=== PATIENT | male | born 1995 | race African-American/Black ===

== ENCOUNTER 2019-09-21 04:59 | Emergency (ER) | payer SELFPAY ==
[2019-09-21 05:19] VITALS: BP 123/87; PULSE 80; RESP 18; TEMP 36.6; O2SAT 98
--- NOTE | 2019-09-21 05:22 | ED_ITS ---
HPI - Back Pain/Injury General Chief Complaint: Back Pain/Injury Stated Complaint: LOWER BACK PAIN Time Seen by Provider: 09/21/19 05:22 Source: patient and old records reviewed Mode of arrival: Ambulatory Limitations: no limitations History of Present Illness HPI Narrative: This is a 24-year-old male who comes to the emergency department complaint of low back pain that started in the last 12 hours. Patient states it started about 6:00 pm. Patient states he was driving his car he started to notice some discomfort in his low back particularly on the left side but on both. Patient states that he noticed particularly when he was using gas or break but then when he started to get out of the car using quite painful. He states standing is the most comfortable position he confided. Movement, bending, sitting or twisting are very uncomfortable. Patient denies any fevers. He denies any numbness or weakness down his extremities, no tingling. He denies any saddle anesthesia. No loss of bowel or bladder control. Patient denies any known trauma. 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 Patient tried Advil 1 time but no additional medications. He denies any other medical history, no prior surgeries. He denies any drug allergies. Denies tobacco, alcohol or illicit. Related Data Previous Rx's Medication Instructions Recorded cyclobenzaprine 20 mg PO Q8H PRN #14 tab 09/21/19 Allergies Allergy/AdvReac Type Severity Reaction Status Date / Time No Known Drug Allergies Allergy Unknown Unverified 01/22/18 12:30 SHRIMP Allergy Unknown Uncoded 01/22/18 12:30 Review of Systems Review of Systems ROS Unobtainable: All systems reviewed & are unremarkable except as noted in HPI and below Patient History Social History (Updated 09/21/19 @ 05:45 by Sera Zaman DO) Smoking Status: Never smoker alcohol intake: never substance use type: does not use Smoking Status: Never smoker Substance Use Type: does not use Exam Narrative Exam Narrative: GENERAL: Alert and oriented x three, well-nourished, well- appearing male in mild distress. HEENT: Head normocephalic, atraumatic, EOMI, pupils reactive, face symmetric, moist mucous membranes NECK: Supple, full range of motion CARDIOVASCULAR: Regular rate and rhythm without murmurs, rubs or gallops. RESPIRATORY: Breath sounds equal bilaterally, no wheezes rales or rhonchi. ABDOMEN: Soft, nontender. Normoactive bowel sounds all 4 quadrants. No guarding or rebound, rigidity, no mass : No CVA tenderness BACK: No cervical, thoracic or lumbar vertebral point tenderness. Patient has decreased range of motion. Patient prefers to stand, he does sit but does so gingerly. Patient's gait is normal. Rectal exam is deferred. Muscle strength is 5/5 in lower extremities, DTRs are 2/4 and lower extremities. Dorsalis pedis and tibialis pulses are 2+ and lower extremities. Sensation is intact in the lo wer extremities. EXTREMITIES: Normal range of motion, no clubbing or edema. Neurovascularly intact NEUROLOGICAL: Cranial nerves II through XII grossly intact. Moving all extremities SKIN: Warm, dry, no petechiae, no rashes or lesions. Initial Vital Signs Initial Vital Signs: Vital Signs Temperature 97.9 F 09/21/19 05:19 Pulse Rate 80 09/21/19 05:19 Respiratory Rate 18 09/21/19 05:19 Blood Pressure 123/87 09/21/19 05:19 Pulse Oximetry 98 09/21/19 05:19 Course Orders Ordered: Discontinued Medications Cyclobenzaprine HCl (Flexeril 10 Mg Prepack) 1 bottle [facility] ONE Stop: 09/21/19 05:38 Last Admin: 09/21/19 05:51 Dose: 1 bottle Documented by: YUNIOR Ketorolac Tromethamine (Toradol) 30 mg IM NOW ONE Stop: 09/21/19 05:38 Last Admin: 09/21/19 05:51 Dose: 30 mg Documented by: YUNIOR Vital Signs Vital signs: Vital Signs - 8 hr 09/21/19 05:19 Temperature 97.9 F Pulse Rate 80 Respiratory Rate 18 Blood Pressure 123/87 Pulse Oximetry 98 MDM - Back Pain/Injury MDM Narrative Medical decision making narrative: Discussed with patient he does not have any red flag symptoms at this time, do not feel he warrants imaging. Patient and I discussed reasons to return emergently, plan for a short course of muscle relaxants, NSAIDs and Tylenol. 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 Patient aware of red flag symptoms. Discharge Plan Departure Patient Disposition: Home Clinical Impression: Low back pain Instructions: DI for Low Back Pain Activity Restrictions/Additional Instructions: Follow up in the next week if no improvement of symptoms. You may call [phone] to established with a primary care physician. This is the health human resource assistant number and they can help you find a primary care doctor. Continue ibuprofen up to 800 mg every 8 hours as needed for pain, you may also take Tylenol up to a 1000 mg every 8 hours as needed pain. Take muscle relaxer 1 tablet every 8 hours as needed, this medication can make you sleepy do not drive, perform hazardous activities or make any major decisions while taking this medication. Use moist heat to the affected area, hot showers, hot baths or heat packs. Make sure that when you are at work, lifting and bending that you are protecting your back and using your legs to lift/movement patients. Return to the emergency department for fevers greater 100.4 F, rapidly worsening pain, new numbness or weakness down your lower extremities, loss of bowel or bladder control, numbness in the groin area or other new or concerning symptoms. Prescriptions: New cyclobenzaprine 10 mg tablet 20 mg PO Q8H PRN (Reason: muscle spasm) Qty: 14 RF: 0 Referrals: Cleveland Dotson MD [Primary Care Provider] - Stand Alone Forms: Work Release Note
[2019-09-21] MEDS: CYCLOBENZAPRINE 10 MG PREPACK 1 BOTTLE MISC (05:51)
[2019-09-21] MEDS: KETOROLAC 60 MG/2 ML VIAL 30 MG IM (05:51)
[2019-09-21 06:15] VITALS: BP 120/77; PULSE 76; RESP 18; O2SAT 98
== END 2019-09-21 06:15 | disposition home or self-care (01) ==
PROVIDERS: Emergency Provider Emergency Medicine; PCP Internal Medicine
DX: M54.5 Low back pain (principal)
CPT/HCPCS: 96372; 99282; 99283; J1885

== ENCOUNTER → 2020-10-25 15:42 | Outpatient (CLI) | payer OTHER, SELFPAY ==
[2020-10-25 16:40] LABS: Add Manual Diff / Slide Review NO; Basophils Absolute Auto 100 /uL (0-100); Basophils Percent Auto 0.7 % (0-2); Eosinophils Absolute Auto 200 /uL (0-450); Eosinophils Percent Auto 2.6 % (2-4); Hematocrit 41.4 % (41-53); Hemoglobin 13.9 g/dL (13.5-17.5); Lymphocytes Absolute Auto 2200 /uL (1100-4500); Lymphocytes Percent Auto 23.9 % (25-40); Mean Corpuscular HGB Conc 33.5 % (30-36); Mean Corpuscular Hemoglobin 28.5 PG (26-34); Monocytes Absolute Auto 1400 /uL (0-900); Neutrophils Absolute Auto 5300 /uL (1500-7000); Neutrophils Percent Auto 57.8 % (50-75); Platelet Count 181 X10^3/uL (150-400); Red Blood Cell Count 4.87 X10^6/uL (4.5-5.9); Red Cell Distribution Width 13.4 % (11.6-14.8); White Blood Cell Count 9.2 X10^3/uL (4.5-11.0)
[2020-10-25 17:32] LABS: Erythrocyte Sedimentation Rate 5 MM/HR (0-15)
[2020-10-25 17:35] LABS: Alanine Aminotransferase 22 IU/L (<50); Albumin 4.6 g/dL (3.5-5.0); Albumin Globulin Ratio 1.3 (1.0-2.8); Alkaline Phosphatase 57 U/L (38-126); Aspartate Aminotransferase 27 IU/L (17-59); BUN Creatinine Ratio 15.4 (6-22); Bilirubin Total 0.5 mg/dL (0.2-1.3); Blood Urea Nitrogen 22 mg/dL (9-20); Calcium 9.4 mg/dL (8.4-10.2); Carbon Dioxide 28 mmol/L (22-32); Chloride 103 mmol/L (98-107); Estimated Glomerular Filt Rate 59.3 mL/min (>60); Globulin 3.6 g/dL (1.7-4.1); Glucose 86 mg/dL (70-100); HEMOLYSIS < 15 (0-50); Potassium 3.8 mmol/L (3.4-5.1); Sodium 137 mmol/L (137-145); Total Protein 8.2 g/dL (6.3-8.2)
[2020-10-25 17:36] LABS: C-Reactive Protein Quant < 0.5 mg/dL (<1.0)
[2020-10-25 17:46] LABS: Vitamin D 25 Hydroxy (D3) 32.9 ng/mL (30.0-100.0)
[2020-10-25 18:11] LABS: HIV 1 & 2 Ab/Ag 4th Gen Combo NEGATIVE (NEGATIVE)
[2020-10-26 20:36] LABS: Hepatitis B Surf AB Quant 373.1 mIU/mL (Immunity>9.9)
[2020-10-27 01:34] LABS: Hepatitis B Core AB w/Reflex Negative (Negative)
[2020-10-27 15:16] LABS: QuantiFERON Mitogen Value >10.00 IU/mL (.); QuantiFERON Nil Value 0.48 IU/mL (.); QuantiFERON TB Gold Plus Negative (Negative); QuantiFERON TB1 Ag Value 0.51 IU/mL (.); QuantiFERON TB2 Ag Value 0.49 IU/mL (.)
== END ==
PROVIDERS: PCP Family Medicine; Referring Provider Internal Medicine Rheumatology; Visit Provider Internal Medicine Rheumatology
DX: H20.829 Vogt-Koyanagi syndrome, unspecified eye (principal)
CPT/HCPCS: 36415; 80053; 82306; 85025; 85651; 86140; 86480; 86704; 86706; 87389

== ENCOUNTER 2020-10-26 12:45 | Outpatient (RCR) | payer OTHER, SELFPAY ==
--- NOTE | 2020-07-18 15:21 | PT.OIE ---
Current Diagnoses Sciatica, unspecified side (07/18/20) Past Medical History (Last Updated 07/12/20 @ 21:50 by Carmita Odonnell) Hearing loss (Acute) Pelvic somatic dysfunction (Acute) Sacral region somatic dysfunction (Acute) Somatic dysfunction of lower extremity (Acute) Vision disorder (Chronic) Past Surgical History (Last Updated 07/12/20 @ 21:50 by Carmita Odonnell) Cochlear implant in place (Acute ~11/2015) Visit Care Team Role Provider Type Danieliot Kamara DO Primary Care Provider Physician Specialty: Family Practice Address: [address] [place] [address], [id number] Email: MARANDA Nathan Attending Provider Advanced Material Handler Loader Referring Provider Specialty: Address: [address] [place] [address], [id number] Email: Physical Therapy Initial Evaluation PT-OP-A Visit Information Start: 07/18/20 07:41 Freq: Status: Active Protocol: Document 07/18/20 14:30 AMB (Rec: 07/19/20 14:56 AMB [email or web address]) Out-Patient Physical Therapy Visit Information Visit Information Visit Type Initial Evaluation Visit Start Time 14:30 Visit Stop Time 15:15 Total Visit Minutes 45 Visit Number 1 PT-OP-B Current Condition Start: 07/18/20 07:41 Freq: Status: Active Protocol: Document 07/18/20 14:27 AMB (Rec: 07/18/20 14:42 AMB [id number]) Current Condition History of Current Condition Onset Date November 2019 Current Complaints back pain with L LE radiation History of Current Condition Bryan notes the first onset of back pain was in November getting out of the car. It got better, but not all the way. In April he got pain in his left buttocks, and about 3 weeks ago it progressed to tingling all the way to his calf down the posteriolateral aspect. Sitting worsens the pain, lifting the leg straight out also worsens the pain. 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 Pain is the worst in buttocks, pain can down leg on bad days, not sure what makes a day bad. Walking helps. He does lift weights and in general feels good when working out but avoids lifting and squats . Treatment Goals Patient/Caregiver Goals Decrease pain, be able to sit/ drive without pain. Prior Functional Status Baseline Function- ADL's Independent Baseline Function- Mobility Independent Current Functional Impairments (Reported) Functional Limitations- ADL's sitting and driving immediately cause pain/ tingling Personal Factors Other Personal Factors That May Effect vision/hearing impaired Therapy/Recovery PT-OP-C Subjective Start: 07/18/20 07:41 Freq: Status: Active Protocol: Document 07/18/20 14:30 AMB (Rec: 07/19/20 14:56 AMB [email or web address]) Patient Questionnaires Oswestry Low Back Index Oswestry Score 32 Oswestry Impairment 20 to 39% Impaired (Score 20- 39) OP-PT Pain Assessment Location Left Leg Pain Location Details buttocks going down into the posterior leg Intensity 5 Scale Used Numeric (0 - 10) Description Sharp,Tingling Pain Aggravating Factors Sitting PT-OP-F Manual Assessment Start: 07/18/20 07:41 Freq: Status: Active Protocol: Document 07/18/20 14:30 AMB (Rec: 07/19/20 14:56 AMB [email or web address]) Manual Assessments Soft Tissue Assessment Soft Tissue Mobility Assessment Significant tightness at hamstrings, less so through gluteals, mild tenderness over piriformis, increased tone at lumbar paraspinals bilaterally Other Manual Assessments Other Manual Assessments long axis distraction relieves sx PT-OP-G Mobility & Gait Start: 07/18/20 07:41 Freq: Status: Active Protocol: Document 07/18/20 14:30 AMB (Rec: 07/19/20 14:56 AMB [email or web address]) OP Gait Assessment Gait Gait Assistance Required: Independent PT-OP-J Posture/Palpation/Skin Start: 07/18/20 07:41 Freq: Status: Active Protocol: Document 07/18/20 14:30 AMB (Rec: 07/19/20 14:56 AMB [email or web address]) Posture Evaluation Comments Posture Comments Increased lumbar lordosis PT-OP-K Range of Motion Start: 07/18/20 07:41 Freq: Status: Active Protocol: Document 07/18/20 14:30 AMB (Rec: 07/19/20 14:56 AMB [email or web address]) Lumbar Spine Range of Motion Lumbar Spine Active Degrees Testing Position Standing Flexion 10 Extension 20 Lateral Flexion Left 10 Lateral Flexion Right 20 Comments flexion and L SB painful, extension and R SB not painful Hip Goniometric Range of Motion Hip ROM Limitations Hip ROM Limitations Soft Tissue Tightness,Pain Comments SLR: 55 degrees on L, 70 on R PT-OP-L Special Tests Start: 07/18/20 07:41 Freq: Status: Active Protocol: Document 07/18/20 14:30 AMB (Rec: 07/19/20 14:56 AMB [email or web address]) Special Tests Lumbar Spine Special Tests Straight Leg Raise Test Results + Slump Test Results + PT-OP-M Strength Start: 07/18/20 07:41 Freq: Status: Active Protocol: Document 07/18/20 14:30 AMB (Rec: 07/19/20 14:56 AMB [email or web address]) Hip Strength Hip Manual Muscle Testing Left Flexion (L2) 3 Fair Extension (S1) 4 Good Abduction 4 Good Adduction 4 Good Right Flexion (L2) 4+ Good+ Extension (S1) 5 Normal Abduction 5 Normal Adduction 5 Normal PT-OP-Q Treatments Start: 07/18/20 07:41 Freq: Status: Active Protocol: Document 07/18/20 14:30 AMB (Rec: 07/19/20 14:56 AMB [email or web address]) Therapeutic Exercises Supine Exercises 2 Supine Exercise Name sciatic nerve glide Reps/Minutes 10 Comments small ROM to avoid flaring pain 1 Supine Exercise Name knee to opposite shoulder Reps/Minutes 30x2 PT-OP-T Assessment and Plan Start: 07/18/20 07:41 Freq: Status: Active Protocol: Document 07/18/20 13:30 AMB (Rec: 07/19/20 15:21 AMB [email or web address]) Physical Therapy Assessment Rehab Potential Rehabilitation Potential Good Evaluation Complexity Number of Personal Factors/Comorbidities 1-2 Number of Body Systems Impaired 3 Clinical Presentation at Evaluation Evolving Impairments Impairments Functional Activities,Pain, Posture,ROM Goals Three Impairment exercise Short Term Goal (STG) Bryan will be independent with a gym exercise program that does not exacerbate his symptoms. STG Duration 4 weeks Two Impairment pain Short Term Goal (STG) Bryan will sit for 5 minutes without an increase in his pain. 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 LTG Duration 8 weeks One Impairment ROM Short Term Goal (STG) Bryan will improve his lumbar flexion AROM to 30 degrees without tingling down his leg. STG Duration 4 weeks [facility] Goal (LTG) Bryan will increase his straight leg raise AROM to 70 degrees without leg or back sx . LTG Duration 8 weeks Assessment Summary Assessment Bryan attends physical therapy with recent onset exacerbation of radiating left leg pain. He is very limited in spinal flexion and straight leg raise. Slump and straight leg both increased tingling in his leg, although spinal PAs and palpation over piriformis did not. Distraction reduced sx. Bryan is fairly active, lifting weights 4-5x/week, and will benefit from instruction in safe exercise as well as reducing his nerve sx so that he can sit and drive with less pain. Physical Therapy Plan Frequency and Duration Frequency of Treatment 2x/Week Duration of Treatment 8 weeks Plan of Care Start Date 07/18/20 Plan of Care End Date 09/12/20 Therapeutic Interventions Therapeutic Interventions Home Exercise Program,Joint Mobilizations,Manual Therapy, Neuromuscular Re-education, Therapeutic Activities, Therapeutic Exercises Modalities Traction- Mechanical Next Visit Focus/Plan Next Note Type Treatment Note Next Visit Plan Focus on nerve mobility, improve range, and decreasing tingling sx with sitting
--- NOTE | 2020-07-18 15:23 | PT.OPPOC ---
Physical, Occupational & Speech Therapy At [facility] Current Diagnoses Sciatica, unspecified side (07/18/20) Visit Care Team Role Provider Type Danielito Kamara DO Primary Care Provider Physician Specialty: Family Practice Address: [address] [place] [address], [id number] Email: MARANDA Nathan Attending Provider Advanced Wealth Management Director Referring Provider Specialty: EM Address: [address] [place] [address], [id number] Email: Plan Of Care PT-OP-T Assessment and Plan Start: 07/18/20 07:41 Freq: Status: Active Protocol: Document 07/18/20 13:30 AMB (Rec: 07/19/20 15:21 AMB [email or web address]) Physical Therapy Assessment Rehab Potential Rehabilitation Potential Good Evaluation Complexity Number of Personal Factors/Comorbidities 1-2 Number of Body Systems Impaired 3 Clinical Presentation at Evaluation Evolving Impairments Impairments Functional Activities,Pain, Posture,ROM Goals Three Impairment exercise Short Term Goal (STG) Bryan will be independent with a gym exercise program that does not exacerbate his symptoms. STG Duration 4 weeks Two Impairment pain Short Term Goal (STG) Bryan will sit for 5 minutes without an increase in his pain. STG Duration 4 weeks Shelter Goal (LTG) Bryan will drive from his home to work without an increase in pain. LTG Duration 8 weeks One Impairment ROM Short Term Goal (STG) Bryan will improve his lumbar flexion AROM to 30 degrees without tingling down his leg. STG Duration 4 weeks Shelter Goal (LTG) Bryan will increase his straight leg raise AROM to 70 degrees without leg or back sx . LTG Duration 8 weeks Assessment Summary Assessment Bryan attends physical therapy with recent onset exacerbation of radiating left leg pain. He is very limited in spinal flexion and straight leg raise. Slump and straight leg both increased tingling in his leg, although spinal PAs and palpation over piriformis did not. Distraction reduced sx. Bryan is fairly active, lifting weights 4-5x/week, and will benefit from instruction in safe exercise as well as reducing his nerve sx so that he can sit and drive with less pain. Physical Therapy Plan Frequency and Duration Frequency of Treatment 2x/Week Duration of Treatment 8 weeks Plan of Care Start Date 07/18/20 Plan of Care End Date 09/12/20 Therapeutic Interventions Therapeutic Interventions Home Exercise Program,Joint Mobilizations,Manual Therapy, Neuromuscular Re-education, Therapeutic Activities, Therapeutic Exercises Modalities Traction- Mechanical Next Visit Focus/Plan Next Note Type Treatment Note Next Visit Plan Focus on nerve mobility, improve range, and decreasing tingling sx with sitting Plan of Care Dates Plan of Care Start Date 07/18/20 Plan of Care End Date 09/12/20 Electronically Signed by: Megan Red, PT 07/19/20 [id number] Please Sign and Return: I have reviewed this Plan of Care and certify that the skilled therapy services above are required to meet the patient?s needs. Physician Signature Date Printed Name and Credentials Clinical Instructor Signature Printed Name and Credentials
--- NOTE | 2020-07-21 15:37 | PT.OTN ---
Current Diagnoses Sciatica, unspecified side (07/21/20) Physical Therapy Treatment Note PT-OP-A Visit Information Start: 07/18/20 07:41 Freq: Status: Active Protocol: Document 07/21/20 14:15 AMB (Rec: 07/21/20 15:36 AMB [email or web address]) Out-Patient Physical Therapy Visit Information Visit Information Visit Type Treatment Note Visit Start Time 14:15 Visit Stop Time 15:00 Total Visit Minutes 45 Visit Number 2 PT-OP-B Current Condition Start: 07/18/20 07:41 Freq: Status: Active Protocol: Document 07/18/20 14:27 AMB (Rec: 07/18/20 14:42 AMB [id number]) Current Condition History of Current Condition Onset Date November 2019 Current Complaints back pain with L LE radiation History of Current Condition Chamar notes the first onset of back pain was in November getting out of the car. It got better, but not all the way. In April he got pain in his left buttocks, and about 3 weeks ago it progressed to tingling all the way to his calf down the posteriolateral aspect. Sitting worsens the pain, lifting the leg straight out also worsens the pain. 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 Pain is the worst in buttocks, pain can down leg on bad days, not sure what makes a day bad. Walking helps. He does lift weights and in general feels good when working out but avoids lifting and squats . Treatment Goals Patient/Caregiver Goals Decrease pain, be able to sit/ drive without pain. Prior Functional Status Baseline Function- ADL's Independent Baseline Function- Mobility Independent Current Functional Impairments (Reported) Functional Limitations- ADL's sitting and driving immediately cause pain/ tingling Personal Factors Other Personal Factors That May Effect vision/hearing impaired Therapy/Recovery PT-OP-C Subjective Start: 07/18/20 07:41 Freq: Status: Active Protocol: Document 07/21/20 14:15 AMB (Rec: 07/21/20 15:36 AMB [email or web address]) OP-PT Subjective Patient Comments Patient Comments Pt reports sx about the same, about 5/10 when seated. PT-OP-F Manual Assessment Start: 07/18/20 07:41 Freq: Status: Active Protocol: Document 07/18/20 14:30 AMB (Rec: 07/19/20 14:56 AMB [email or web address]) Manual Assessments Soft Tissue Assessment Soft Tissue Mobility Assessment Significant tightness at hamstrings, less so through gluteals, mild tenderness over piriformis, increased tone at lumbar paraspinals bilaterally Other Manual Assessments Other Manual Assessments long axis distraction relieves sx PT-OP-G Mobility & Gait Start: 07/18/20 07:41 Freq: Status: Active Protocol: Document 07/18/20 14:30 AMB (Rec: 07/19/20 14:56 AMB [email or web address]) OP Gait Assessment Gait Gait Assistance Required: Independent PT-OP-J Posture/Palpation/Skin Start: 07/18/20 07:41 Freq: Status: Active Protocol: Document 07/18/20 14:30 AMB (Rec: 07/19/20 14:56 AMB [email or web address]) Posture Evaluation Comments Posture Comments Increased lumbar lordosis PT-OP-K Range of Motion Start: 07/18/20 07:41 Freq: Status: Active Protocol: Document 07/18/20 14:30 AMB (Rec: 07/19/20 14:56 AMB [email or web address]) Lumbar Spine Range of Motion Lumbar Spine Active Degrees Testing Position Standing Flexion 10 Extension 20 Lateral Flexion Left 10 Lateral Flexion Right 20 Comments flexion and L SB painful, extension and R SB not painful Hip Goniometric Range of Motion Hip ROM Limitations Hip ROM Limitations Soft Tissue Tightness,Pain Comments SLR: 55 degrees on L, 70 on R PT-OP-L Special Tests Start: 07/18/20 07:41 Freq: Status: Active Protocol: Document 07/18/20 14:30 AMB (Rec: 07/19/20 14:56 AMB [email or web address]) Special Tests Lumbar Spine Special Tests Straight Leg Raise Test Results + Slump Test Results + PT-OP-M Strength Start: 07/18/20 07:41 Freq: Status: Active Protocol: Document 07/18/20 14:30 AMB (Rec: 07/19/20 14:56 AMB [email or web address]) Hip Strength Hip Manual Muscle Testing Left Flexion (L2) 3 Fair Extension (S1) 4 Good Abduction 4 Good Adduction 4 Good Right Flexion (L2) 4+ Good+ Extension (S1) 5 Normal Abduction 5 Normal Adduction 5 Normal PT-OP-Q Treatments Start: 07/18/20 07:41 Freq: Status: Active Protocol: Document 07/21/20 14:15 AMB (Rec: 07/21/20 15:36 AMB [email or web address]) Therapeutic Exercises Supine Exercises 3 Supine Exercise Name TrA stab with small SLR Reps/Minutes 10 2 Supine Exercise Name sciatic nerve glide Reps/Minutes 10 Comments small ROM to avoid flaring pain 1 Supine Exercise Name knee to opposite shoulder Reps/Minutes 30x2 Other Exercises 1 Other Exercise Name rosette pose with SB Manual Therapy Treatment Soft Tissue Mobilization 1 Body Location L QL Mobilization Type Myofascial Release Intensity/Depth Moderate Body Position Sidelying Manual Techniques 1 Type long axis distraction Comments increasing hip flexion as tolerated PT-OP-R Modalities Start: 07/18/20 07:41 Freq: Status: Active Protocol: Document 07/21/20 14:30 AMB (Rec: 07/21/20 15:37 AMB [email or web address]) Hot Pack/Cold Pack Treatment Cold Pack Location L hip/back Patient Position Hooklying Treatment Duration (minutes) 10 PT-OP-T Assessment and Plan Start: 07/18/20 07:41 Freq: Status: Active Protocol: Document 07/21/20 14:15 AMB (Rec: 07/21/20 15:36 AMB [email or web address]) Physical Therapy Assessment Goals Three Impairment exercise Short Term Goal (STG) Bryan will be independent with a gym exercise program that does not exacerbate his symptoms. STG Duration 4 weeks Two Impairment pain Short Term Goal (STG) Bryan will sit for 5 minutes without an increase in his pain. STG Duration 4 weeks Correction Goal (LTG) Bryan will drive from his home to work without an increase in pain. LTG Duration 8 weeks One Impairment ROM Short Term Goal (STG) Bryan will improve his lumbar flexion AROM to 30 degrees without tingling down his leg. STG Duration 4 weeks Correction Goal (LTG) Bryan will increase his straight leg raise AROM to 70 degrees without leg or back sx . LTG Duration 8 weeks Assessment Summary Assessment Bryan attends with continued pain/tingling in his left leg with sitting. Rosette pose does not irritate sx but forward flexion/ hamstring stretch continues to. Physical Therapy Plan Next Visit Focus/Plan Next Visit Plan Assess tolerance to SLR with TrA stab and QL stretch.
--- NOTE | 2020-07-25 15:42 | PT.OTN ---
Current Diagnoses Sciatica, unspecified side (07/25/20) Physical Therapy Treatment Note PT-OP-A Visit Information Start: 07/18/20 07:41 Freq: Status: Active Protocol: Document 07/25/20 14:23 AMB (Rec: 07/25/20 15:25 AMB [id number]) Out-Patient Physical Therapy Visit Information Visit Information Visit Type Treatment Note Visit Start Time 14:30 Visit Stop Time 15:15 Total Visit Minutes 45 Visit Number 3 PT-OP-B Current Condition Start: 07/18/20 07:41 Freq: Status: Active Protocol: Document 07/18/20 14:27 AMB (Rec: 07/18/20 14:42 AMB [id number]) Current Condition History of Current Condition Onset Date November 2019 Current Complaints back pain with L LE radiation History of Current Condition Chamar notes the first onset of back pain was in November getting out of the car. It got better, but not all the way. In April he got pain in his left buttocks, and about 3 weeks ago it progressed to tingling all the way to his calf down the posteriolateral aspect. Sitting worsens the pain, lifting the leg straight out also worsens the pain. 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 Pain is the worst in buttocks, pain can down leg on bad days, not sure what makes a day bad. Walking helps. He does lift weights and in general feels good when working out but avoids lifting and squats . Treatment Goals Patient/Caregiver Goals Decrease pain, be able to sit/ drive without pain. Prior Functional Status Baseline Function- ADL's Independent Baseline Function- Mobility Independent Current Functional Impairments (Reported) Functional Limitations- ADL's sitting and driving immediately cause pain/ tingling Personal Factors Other Personal Factors That May Effect vision/hearing impaired Therapy/Recovery PT-OP-C Subjective Start: 07/18/20 07:41 Freq: Status: Active Protocol: Document 07/25/20 14:23 AMB (Rec: 07/25/20 15:25 AMB [id number]) OP-PT Subjective Patient Comments Patient Comments Feeling the best he has in the last month today, did have some tingling yesterday, pain has been better. PT-OP-F Manual Assessment Start: 07/18/20 07:41 Freq: Status: Active Protocol: Document 07/18/20 14:30 AMB (Rec: 07/19/20 14:56 AMB [email or web address]) Manual Assessments Soft Tissue Assessment Soft Tissue Mobility Assessment Significant tightness at hamstrings, less so through gluteals, mild tenderness over piriformis, increased tone at lumbar paraspinals bilaterally Other Manual Assessments Other Manual Assessments long axis distraction relieves sx PT-OP-G Mobility & Gait Start: 07/18/20 07:41 Freq: Status: Active Protocol: Document 07/18/20 14:30 AMB (Rec: 07/19/20 14:56 AMB [email or web address]) OP Gait Assessment Gait Gait Assistance Required: Independent PT-OP-J Posture/Palpation/Skin Start: 07/18/20 07:41 Freq: Status: Active Protocol: Document 07/18/20 14:30 AMB (Rec: 07/19/20 14:56 AMB [email or web address]) Posture Evaluation Comments Posture Comments Increased lumbar lordosis PT-OP-K Range of Motion Start: 07/18/20 07:41 Freq: Status: Active Protocol: Document 07/18/20 14:30 AMB (Rec: 07/19/20 14:56 AMB [email or web address]) Lumbar Spine Range of Motion Lumbar Spine Active Degrees Testing Position Standing Flexion 10 Extension 20 Lateral Flexion Left 10 Lateral Flexion Right 20 Comments flexion and L SB painful, extension and R SB not painful Hip Goniometric Range of Motion Hip ROM Limitations Hip ROM Limitations Soft Tissue Tightness,Pain Comments SLR: 55 degrees on L, 70 on R PT-OP-L Special Tests Start: 07/18/20 07:41 Freq: Status: Active Protocol: Document 07/18/20 14:30 AMB (Rec: 07/19/20 14:56 AMB [email or web address]) Special Tests Lumbar Spine Special Tests Straight Leg Raise Test Results + Slump Test Results + PT-OP-M Strength Start: 07/18/20 07:41 Freq: Status: Active Protocol: Document 07/18/20 14:30 AMB (Rec: 07/19/20 14:56 AMB [email or web address]) Hip Strength Hip Manual Muscle Testing Left Flexion (L2) 3 Fair Extension (S1) 4 Good Abduction 4 Good Adduction 4 Good Right Flexion (L2) 4+ Good+ Extension (S1) 5 Normal Abduction 5 Normal Adduction 5 Normal PT-OP-Q Treatments Start: 07/18/20 07:41 Freq: Status: Active Protocol: Document 07/25/20 14:30 AMB (Rec: 07/25/20 15:42 AMB [email or web address]) Therapeutic Exercises Supine Exercises 3 Supine Exercise Name TrA stab with small SLR Reps/Minutes 10 2 Supine Exercise Name sciatic nerve glide Reps/Minutes 10 Comments small ROM to avoid flaring pain 1 Supine Exercise Name knee to opposite shoulder Reps/Minutes 30x2 Sitting Exercises 1 Sitting Exercise Name seated on therapy ball Comments december, TKE-difficult because of balance Other Exercises 3 Other Exercise Name single leg bridge Reps/Minutes 2x5 2 Other Exercise Name plank Reps/Minutes forearms 30x2 Manual Therapy Treatment Soft Tissue Mobilization 1 Body Location L QL Mobilization Type Myofascial Release Intensity/Depth Moderate Body Position Sidelying Manual Techniques 1 Type long axis distraction Comments increasing hip flexion as tolerated PT-OP-R Modalities Start: 07/18/20 07:41 Freq: Status: Active Protocol: Document 07/21/20 14:30 AMB (Rec: 07/21/20 15:37 AMB [email or web address]) Hot Pack/Cold Pack Treatment Cold Pack Location L hip/back Patient Position Hooklying Treatment Duration (minutes) 10 PT-OP-T Assessment and Plan Start: 07/18/20 07:41 Freq: Status: Active Protocol: Document 07/25/20 14:30 AMB (Rec: 07/25/20 15:42 AMB [email or web address]) Physical Therapy Assessment Assessment Summary Assessment Bryan was feeling better today but weakness at glute/ hamstring is significant. Physical Therapy Plan Next Visit Focus/Plan Next Note Type Treatment Note Next Visit Plan Progress functional core stability and glute/hamstring strength
--- NOTE | 2020-07-28 15:33 | PT.OTN ---
Current Diagnoses Sciatica, unspecified side (07/28/20) Physical Therapy Treatment Note PT-OP-A Visit Information Start: 07/18/20 07:41 Freq: Status: Active Protocol: Document 07/28/20 14:30 AMB (Rec: 07/28/20 15:00 AMB [id number]) Out-Patient Physical Therapy Visit Information Visit Information Visit Type Treatment Note Visit Start Time 14:30 Visit Stop Time 15:15 Total Visit Minutes 45 Visit Number 4 PT-OP-B Current Condition Start: 07/18/20 07:41 Freq: Status: Active Protocol: Document 07/18/20 14:27 AMB (Rec: 07/18/20 14:42 AMB [id number]) Current Condition History of Current Condition Onset Date November 2019 Current Complaints back pain with L LE radiation History of Current Condition Chamar notes the first onset of back pain was in November getting out of the car. It got better, but not all the way. In April he got pain in his left buttocks, and about 3 weeks ago it progressed to tingling all the way to his calf down the posteriolateral aspect. Sitting worsens the pain, lifting the leg straight out also worsens the pain. 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 Pain is the worst in buttocks, pain can down leg on bad days, not sure what makes a day bad. Walking helps. He does lift weights and in general feels good when working out but avoids lifting and squats . Treatment Goals Patient/Caregiver Goals Decrease pain, be able to sit/ drive without pain. Prior Functional Status Baseline Function- ADL's Independent Baseline Function- Mobility Independent Current Functional Impairments (Reported) Functional Limitations- ADL's sitting and driving immediately cause pain/ tingling Personal Factors Other Personal Factors That May Effect vision/hearing impaired Therapy/Recovery PT-OP-C Subjective Start: 07/18/20 07:41 Freq: Status: Active Protocol: Document 07/28/20 14:30 AMB (Rec: 07/28/20 15:00 AMB [id number]) OP-PT Subjective Patient Comments Patient Comments Pt overall has had a good week , rates pain with sitting 4/10 , 0/10 when not sitting. PT-OP-F Manual Assessment Start: 07/18/20 07:41 Freq: Status: Active Protocol: Document 07/18/20 14:30 AMB (Rec: 07/19/20 14:56 AMB [email or web address]) Manual Assessments Soft Tissue Assessment Soft Tissue Mobility Assessment Significant tightness at hamstrings, less so through gluteals, mild tenderness over piriformis, increased tone at lumbar paraspinals bilaterally Other Manual Assessments Other Manual Assessments long axis distraction relieves sx PT-OP-G Mobility & Gait Start: 07/18/20 07:41 Freq: Status: Active Protocol: Document 07/18/20 14:30 AMB (Rec: 07/19/20 14:56 AMB [email or web address]) OP Gait Assessment Gait Gait Assistance Required: Independent PT-OP-J Posture/Palpation/Skin Start: 07/18/20 07:41 Freq: Status: Active Protocol: Document 07/18/20 14:30 AMB (Rec: 07/19/20 14:56 AMB [email or web address]) Posture Evaluation Comments Posture Comments Increased lumbar lordosis PT-OP-K Range of Motion Start: 07/18/20 07:41 Freq: Status: Active Protocol: Document 07/18/20 14:30 AMB (Rec: 07/19/20 14:56 AMB [email or web address]) Lumbar Spine Range of Motion Lumbar Spine Active Degrees Testing Position Standing Flexion 10 Extension 20 Lateral Flexion Left 10 Lateral Flexion Right 20 Comments flexion and L SB painful, extension and R SB not painful Hip Goniometric Range of Motion Hip ROM Limitations Hip ROM Limitations Soft Tissue Tightness,Pain Comments SLR: 55 degrees on L, 70 on R PT-OP-L Special Tests Start: 07/18/20 07:41 Freq: Status: Active Protocol: Document 07/18/20 14:30 AMB (Rec: 07/19/20 14:56 AMB [email or web address]) Special Tests Lumbar Spine Special Tests Straight Leg Raise Test Results + Slump Test Results + PT-OP-M Strength Start: 07/18/20 07:41 Freq: Status: Active Protocol: Document 07/18/20 14:30 AMB (Rec: 07/19/20 14:56 AMB [email or web address]) Hip Strength Hip Manual Muscle Testing Left Flexion (L2) 3 Fair Extension (S1) 4 Good Abduction 4 Good Adduction 4 Good Right Flexion (L2) 4+ Good+ Extension (S1) 5 Normal Abduction 5 Normal Adduction 5 Normal PT-OP-Q Treatments Start: 07/18/20 07:41 Freq: Status: Active Protocol: Document 07/28/20 14:30 AMB (Rec: 07/28/20 15:33 AMB [email or web address]) Therapeutic Exercises Supine Exercises 5 Supine Exercise Name single leg bridge Reps/Minutes 2x15 Comments challenging 4 Supine Exercise Name dying bug Reps/Minutes 30x2 3 Supine Exercise Name TrA stab with small SLR Reps/Minutes 10 Sidelying Exercises 1 Sidelying Exercise Name side plank modified with kneeling Reps/Minutes 30x2 Comments added hip abduction Manual Therapy Treatment Manual Techniques 1 Type long axis distraction Comments increasing hip flexion as tolerated PT-OP-R Modalities Start: 07/18/20 07:41 Freq: Status: Active Protocol: Document 07/21/20 14:30 AMB (Rec: 07/21/20 15:37 AMB [email or web address]) Hot Pack/Cold Pack Treatment Cold Pack Location L hip/back Patient Position Hooklying Treatment Duration (minutes) 10 PT-OP-T Assessment and Plan Start: 07/18/20 07:41 Freq: Status: Active Protocol: Document 07/28/20 14:30 AMB (Rec: 07/28/20 15:33 AMB [email or web address]) Physical Therapy Assessment Assessment Summary Assessment Bryan continues to have pain with sitting but was able to drive to [place] and back with 4/10 pain which is an improvement. Continues to be weak in deep core and hips. Physical Therapy Plan Next Visit Focus/Plan Next Note Type Treatment Note Next Visit Plan Progress functional core stability and glute/hamstring strength
--- NOTE | 2020-08-02 09:00 | PT.OTN ---
Current Diagnoses Sciatica, unspecified side (08/02/20) Physical Therapy Treatment Note PT-OP-A Visit Information Start: 07/18/20 07:41 Freq: Status: Active Protocol: Document 08/02/20 08:14 AMB (Rec: 08/02/20 08:49 AMB [id number]) Out-Patient Physical Therapy Visit Information Visit Information Visit Type Treatment Note Visit Start Time 08:15 Visit Stop Time 09:00 Total Visit Minutes 45 Visit Number 5 PT-OP-B Current Condition Start: 07/18/20 07:41 Freq: Status: Active Protocol: Document 07/18/20 14:27 AMB (Rec: 07/18/20 14:42 AMB [id number]) Current Condition History of Current Condition Onset Date November 2019 Current Complaints back pain with L LE radiation History of Current Condition Chamar notes the first onset of back pain was in November getting out of the car. It got better, but not all the way. In April he got pain in his left buttocks, and about 3 weeks ago it progressed to tingling all the way to his calf down the posteriolateral aspect. Sitting worsens the pain, lifting the leg straight out also worsens the pain. 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 Pain is the worst in buttocks, pain can down leg on bad days, not sure what makes a day bad. Walking helps. He does lift weights and in general feels good when working out but avoids lifting and squats . Treatment Goals Patient/Caregiver Goals Decrease pain, be able to sit/ drive without pain. Prior Functional Status Baseline Function- ADL's Independent Baseline Function- Mobility Independent Current Functional Impairments (Reported) Functional Limitations- ADL's sitting and driving immediately cause pain/ tingling Personal Factors Other Personal Factors That May Effect vision/hearing impaired Therapy/Recovery PT-OP-C Subjective Start: 07/18/20 07:41 Freq: Status: Active Protocol: Document 08/02/20 08:14 AMB (Rec: 08/02/20 08:49 AMB [id number]) OP-PT Subjective Patient Comments Patient Comments 2/10 pain with sitting today. Doesn't feel pain with putting shoes on, but pain was present with driving to [place]. PT-OP-F Manual Assessment Start: 07/18/20 07:41 Freq: Status: Active Protocol: Document 07/18/20 14:30 AMB (Rec: 07/19/20 14:56 AMB [email or web address]) Manual Assessments Soft Tissue Assessment Soft Tissue Mobility Assessment Significant tightness at hamstrings, less so through gluteals, mild tenderness over piriformis, increased tone at lumbar paraspinals bilaterally Other Manual Assessments Other Manual Assessments long axis distraction relieves sx PT-OP-G Mobility & Gait Start: 07/18/20 07:41 Freq: Status: Active Protocol: Document 07/18/20 14:30 AMB (Rec: 07/19/20 14:56 AMB [email or web address]) OP Gait Assessment Gait Gait Assistance Required: Independent PT-OP-J Posture/Palpation/Skin Start: 07/18/20 07:41 Freq: Status: Active Protocol: Document 07/18/20 14:30 AMB (Rec: 07/19/20 14:56 AMB [email or web address]) Posture Evaluation Comments Posture Comments Increased lumbar lordosis PT-OP-K Range of Motion Start: 07/18/20 07:41 Freq: Status: Active Protocol: Document 07/18/20 14:30 AMB (Rec: 07/19/20 14:56 AMB [email or web address]) Lumbar Spine Range of Motion Lumbar Spine Active Degrees Testing Position Standing Flexion 10 Extension 20 Lateral Flexion Left 10 Lateral Flexion Right 20 Comments flexion and L SB painful, extension and R SB not painful Hip Goniometric Range of Motion Hip ROM Limitations Hip ROM Limitations Soft Tissue Tightness,Pain Comments SLR: 55 degrees on L, 70 on R PT-OP-L Special Tests Start: 07/18/20 07:41 Freq: Status: Active Protocol: Document 07/18/20 14:30 AMB (Rec: 07/19/20 14:56 AMB [email or web address]) Special Tests Lumbar Spine Special Tests Straight Leg Raise Test Results + Slump Test Results + PT-OP-M Strength Start: 07/18/20 07:41 Freq: Status: Active Protocol: Document 07/18/20 14:30 AMB (Rec: 07/19/20 14:56 AMB [email or web address]) Hip Strength Hip Manual Muscle Testing Left Flexion (L2) 3 Fair Extension (S1) 4 Good Abduction 4 Good Adduction 4 Good Right Flexion (L2) 4+ Good+ Extension (S1) 5 Normal Abduction 5 Normal Adduction 5 Normal PT-OP-Q Treatments Start: 07/18/20 07:41 Freq: Status: Active Protocol: Document 08/02/20 08:14 AMB (Rec: 08/02/20 08:49 AMB [id number]) Therapeutic Exercises Supine Exercises 5 Supine Exercise Name single leg bridge Reps/Minutes 2x15 Comments challenging 4 Supine Exercise Name dying bug Reps/Minutes 30x2 3 Supine Exercise Name TrA stab with double leg lift Reps/Minutes 10 Sidelying Exercises 1 Sidelying Exercise Name side plank modified with kneeling Reps/Minutes 30x2 Comments added hip abduction Standing Exercises 1 Standing Exercise Name squats Comments 10# medicine ball- balance is a challenge PT-OP-R Modalities Start: 07/18/20 07:41 Freq: Status: Active Protocol: Document 08/02/20 08:15 AMB (Rec: 08/02/20 09:00 AMB [id number]) Hot Pack/Cold Pack Treatment Hot Pack Location low back Patient Position Hooklying Treatment Duration (minutes) 10 PT-OP-T Assessment and Plan Start: 07/18/20 07:41 Freq: Status: Active Protocol: Document 08/02/20 08:14 AMB (Rec: 08/02/20 08:49 AMB [id number]) Physical Therapy Assessment Assessment Summary Assessment Forward bend increases sx but has more ROM before sx start. Hamstring stretch still causes tingling. Overall sx improving, but still definitely present.
--- NOTE | 2020-08-05 08:32 | PT.OTN ---
Current Diagnoses Sciatica, unspecified side (08/05/20) Physical Therapy Treatment Note PT-OP-A Visit Information Start: 07/18/20 07:41 Freq: Status: Active Protocol: Document 08/05/20 07:30 AMB (Rec: 08/05/20 08:31 AMB [id number]) Out-Patient Physical Therapy Visit Information Visit Information Visit Type Treatment Note Visit Start Time 07:35 Visit Stop Time 08:15 Total Visit Minutes 40 Visit Number 6 PT-OP-B Current Condition Start: 07/18/20 07:41 Freq: Status: Active Protocol: Document 07/18/20 14:27 AMB (Rec: 07/18/20 14:42 AMB [id number]) Current Condition History of Current Condition Onset Date November 2019 Current Complaints back pain with L LE radiation History of Current Condition Chamar notes the first onset of back pain was in November getting out of the car. It got better, but not all the way. In April he got pain in his left buttocks, and about 3 weeks ago it progressed to tingling all the way to his calf down the posteriolateral aspect. Sitting worsens the pain, lifting the leg straight out also worsens the pain. 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 Pain is the worst in buttocks, pain can down leg on bad days, not sure what makes a day bad. Walking helps. He does lift weights and in general feels good when working out but avoids lifting and squats . Treatment Goals Patient/Caregiver Goals Decrease pain, be able to sit/ drive without pain. Prior Functional Status Baseline Function- ADL's Independent Baseline Function- Mobility Independent Current Functional Impairments (Reported) Functional Limitations- ADL's sitting and driving immediately cause pain/ tingling Personal Factors Other Personal Factors That May Effect vision/hearing impaired Therapy/Recovery PT-OP-C Subjective Start: 07/18/20 07:41 Freq: Status: Active Protocol: Document 08/05/20 07:30 AMB (Rec: 08/05/20 08:31 AMB [id number]) OP-PT Subjective Patient Comments Patient Comments Some pain and tingling this week, but overall still improving. PT-OP-F Manual Assessment Start: 07/18/20 07:41 Freq: Status: Active Protocol: Document 07/18/20 14:30 AMB (Rec: 07/19/20 14:56 AMB [email or web address]) Manual Assessments Soft Tissue Assessment Soft Tissue Mobility Assessment Significant tightness at hamstrings, less so through gluteals, mild tenderness over piriformis, increased tone at lumbar paraspinals bilaterally Other Manual Assessments Other Manual Assessments long axis distraction relieves sx PT-OP-G Mobility & Gait Start: 07/18/20 07:41 Freq: Status: Active Protocol: Document 07/18/20 14:30 AMB (Rec: 07/19/20 14:56 AMB [email or web address]) OP Gait Assessment Gait Gait Assistance Required: Independent PT-OP-J Posture/Palpation/Skin Start: 07/18/20 07:41 Freq: Status: Active Protocol: Document 07/18/20 14:30 AMB (Rec: 07/19/20 14:56 AMB [email or web address]) Posture Evaluation Comments Posture Comments Increased lumbar lordosis PT-OP-K Range of Motion Start: 07/18/20 07:41 Freq: Status: Active Protocol: Document 07/18/20 14:30 AMB (Rec: 07/19/20 14:56 AMB [email or web address]) Lumbar Spine Range of Motion Lumbar Spine Active Degrees Testing Position Standing Flexion 10 Extension 20 Lateral Flexion Left 10 Lateral Flexion Right 20 Comments flexion and L SB painful, extension and R SB not painful Hip Goniometric Range of Motion Hip ROM Limitations Hip ROM Limitations Soft Tissue Tightness,Pain Comments SLR: 55 degrees on L, 70 on R PT-OP-L Special Tests Start: 07/18/20 07:41 Freq: Status: Active Protocol: Document 07/18/20 14:30 AMB (Rec: 07/19/20 14:56 AMB [email or web address]) Special Tests Lumbar Spine Special Tests Straight Leg Raise Test Results + Slump Test Results + PT-OP-M Strength Start: 07/18/20 07:41 Freq: Status: Active Protocol: Document 07/18/20 14:30 AMB (Rec: 07/19/20 14:56 AMB [email or web address]) Hip Strength Hip Manual Muscle Testing Left Flexion (L2) 3 Fair Extension (S1) 4 Good Abduction 4 Good Adduction 4 Good Right Flexion (L2) 4+ Good+ Extension (S1) 5 Normal Abduction 5 Normal Adduction 5 Normal PT-OP-Q Treatments Start: 07/18/20 07:41 Freq: Status: Active Protocol: Document 08/05/20 07:30 AMB (Rec: 08/05/20 08:31 AMB [id number]) Therapeutic Exercises Supine Exercises 5 Supine Exercise Name single leg bridge Reps/Minutes 2x15 Comments challenging 4 Supine Exercise Name dying bug Reps/Minutes 30x2 3 Supine Exercise Name TrA stab with double leg lift Reps/Minutes 10 Sidelying Exercises 1 Sidelying Exercise Name side plank modified with kneeling Reps/Minutes 30x2 Comments added hip abduction Standing Exercises 2 Standing Exercise Name hamstring stretch Reps/Minutes 30x2 Comments on stair Manual Therapy Treatment Manual Techniques 1 Type long axis traction Comments then hamstring contract relax PT-OP-R Modalities Start: 07/18/20 07:41 Freq: Status: Active Protocol: Document 08/02/20 08:15 AMB (Rec: 08/02/20 09:00 AMB [id number]) Hot Pack/Cold Pack Treatment Hot Pack Location low back Patient Position Hooklying Treatment Duration (minutes) 10 PT-OP-T Assessment and Plan Start: 07/18/20 07:41 Freq: Status: Active Protocol: Document 08/05/20 07:30 AMB (Rec: 08/05/20 08:31 AMB [id number]) Physical Therapy Assessment Assessment Summary Assessment Pt feels he's about 70% better (was about 50% better when starting PT). Can tell he's getting stronger with single leg bridge and core exercises, but sitting can still increase pain and tingling. Physical Therapy Plan Next Visit Focus/Plan Next Visit Plan Progress glut, hamstring strength flexibility.
--- NOTE | 2020-08-08 11:55 | PT.OTN ---
Current Diagnoses Sciatica, unspecified side (08/08/20) Physical Therapy Treatment Note PT-OP-A Visit Information Start: 07/18/20 07:41 Freq: Status: Active Protocol: Document 08/08/20 07:30 AMB (Rec: 08/08/20 08:16 AMB [id number]) Out-Patient Physical Therapy Visit Information Visit Information Visit Type Treatment Note Visit Start Time 07:30 Visit Stop Time 08:15 Total Visit Minutes 45 Visit Number 7 PT-OP-B Current Condition Start: 07/18/20 07:41 Freq: Status: Active Protocol: Document 07/18/20 14:27 AMB (Rec: 07/18/20 14:42 AMB [id number]) Current Condition History of Current Condition Onset Date November 2019 Current Complaints back pain with L LE radiation History of Current Condition Chamar notes the first onset of back pain was in November getting out of the car. It got better, but not all the way. In April he got pain in his left buttocks, and about 3 weeks ago it progressed to tingling all the way to his calf down the posteriolateral aspect. Sitting worsens the pain, lifting the leg straight out also worsens the pain. 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 Pain is the worst in buttocks, pain can down leg on bad days, not sure what makes a day bad. Walking helps. He does lift weights and in general feels good when working out but avoids lifting and squats . Treatment Goals Patient/Caregiver Goals Decrease pain, be able to sit/ drive without pain. Prior Functional Status Baseline Function- ADL's Independent Baseline Function- Mobility Independent Current Functional Impairments (Reported) Functional Limitations- ADL's sitting and driving immediately cause pain/ tingling Personal Factors Other Personal Factors That May Effect vision/hearing impaired Therapy/Recovery PT-OP-C Subjective Start: 07/18/20 07:41 Freq: Status: Active Protocol: Document 08/08/20 07:30 AMB (Rec: 08/08/20 08:16 AMB [id number]) OP-PT Subjective Patient Comments Patient Comments Noticed leg cramping when doing squats at the gym. Worked some 16 hour shifts at work, so that might have made things a bit more tender. PT-OP-F Manual Assessment Start: 07/18/20 07:41 Freq: Status: Active Protocol: Document 07/18/20 14:30 AMB (Rec: 07/19/20 14:56 AMB [email or web address]) Manual Assessments Soft Tissue Assessment Soft Tissue Mobility Assessment Significant tightness at hamstrings, less so through gluteals, mild tenderness over piriformis, increased tone at lumbar paraspinals bilaterally Other Manual Assessments Other Manual Assessments long axis distraction relieves sx PT-OP-G Mobility & Gait Start: 07/18/20 07:41 Freq: Status: Active Protocol: Document 07/18/20 14:30 AMB (Rec: 07/19/20 14:56 AMB [email or web address]) OP Gait Assessment Gait Gait Assistance Required: Independent PT-OP-J Posture/Palpation/Skin Start: 07/18/20 07:41 Freq: Status: Active Protocol: Document 07/18/20 14:30 AMB (Rec: 07/19/20 14:56 AMB [email or web address]) Posture Evaluation Comments Posture Comments Increased lumbar lordosis PT-OP-K Range of Motion Start: 07/18/20 07:41 Freq: Status: Active Protocol: Document 07/18/20 14:30 AMB (Rec: 07/19/20 14:56 AMB [email or web address]) Lumbar Spine Range of Motion Lumbar Spine Active Degrees Testing Position Standing Flexion 10 Extension 20 Lateral Flexion Left 10 Lateral Flexion Right 20 Comments flexion and L SB painful, extension and R SB not painful Hip Goniometric Range of Motion Hip ROM Limitations Hip ROM Limitations Soft Tissue Tightness,Pain Comments SLR: 55 degrees on L, 70 on R PT-OP-L Special Tests Start: 07/18/20 07:41 Freq: Status: Active Protocol: Document 07/18/20 14:30 AMB (Rec: 07/19/20 14:56 AMB [email or web address]) Special Tests Lumbar Spine Special Tests Straight Leg Raise Test Results + Slump Test Results + PT-OP-M Strength Start: 07/18/20 07:41 Freq: Status: Active Protocol: Document 07/18/20 14:30 AMB (Rec: 07/19/20 14:56 AMB [email or web address]) Hip Strength Hip Manual Muscle Testing Left Flexion (L2) 3 Fair Extension (S1) 4 Good Abduction 4 Good Adduction 4 Good Right Flexion (L2) 4+ Good+ Extension (S1) 5 Normal Abduction 5 Normal Adduction 5 Normal PT-OP-Q Treatments Start: 07/18/20 07:41 Freq: Status: Active Protocol: Document 08/08/20 07:30 AMB (Rec: 08/08/20 08:16 AMB [id number]) Gym Equipment Shuttle Recovery Unilateral Squats Resistance 125 Shuttle Recovery Platform Stable Reps/Time 2x10 Therapeutic Exercises Supine Exercises 5 Supine Exercise Name single leg bridge Reps/Minutes 2x15 4 Supine Exercise Name dying bug Reps/Minutes 30x2 2 Supine Exercise Name active hamstring stretch Reps/Minutes 2x10 Sidelying Exercises 2 Sidelying Exercise Name clam Reps/Minutes #2 t band 1 Sidelying Exercise Name side plank modified with kneeling Reps/Minutes 30x2 Comments added hip abduction PT-OP-R Modalities Start: 07/18/20 07:41 Freq: Status: Active Protocol: Document 08/02/20 08:15 AMB (Rec: 08/02/20 09:00 AMB [id number]) Hot Pack/Cold Pack Treatment Hot Pack Location low back Patient Position Hooklying Treatment Duration (minutes) 10 PT-OP-T Assessment and Plan Start: 07/18/20 07:41 Freq: Status: Active Protocol: Document 08/08/20 07:30 AMB (Rec: 08/08/20 08:16 AMB [id number]) Physical Therapy Assessment Assessment Summary Assessment Joaniear can do body weight and shuttle squats without any cramping. Encouraged to keep up with stretches and added QL stretch to HEP. clamshells with #4 band were challenging. Physical Therapy Plan Next Visit Focus/Plan Next Note Type Treatment Note Next Visit Plan Continue to progress flexibility.
--- NOTE | 2020-08-12 11:47 | PT.OTN ---
Current Diagnoses Sciatica, unspecified side (08/12/20) Physical Therapy Treatment Note PT-OP-A Visit Information Start: 07/18/20 07:41 Freq: Status: Active Protocol: Document 08/12/20 11:00 AMB (Rec: 08/12/20 11:47 AMB [id number]) Out-Patient Physical Therapy Visit Information Visit Information Visit Type Treatment Note Visit Start Time 11:03 Visit Stop Time 11:45 Total Visit Minutes 42 Visit Number 8 PT-OP-B Current Condition Start: 07/18/20 07:41 Freq: Status: Active Protocol: Document 07/18/20 14:27 AMB (Rec: 07/18/20 14:42 AMB [id number]) Current Condition History of Current Condition Onset Date November 2019 Current Complaints back pain with L LE radiation History of Current Condition Chamar notes the first onset of back pain was in November getting out of the car. It got better, but not all the way. In April he got pain in his left buttocks, and about 3 weeks ago it progressed to tingling all the way to his calf down the posteriolateral aspect. Sitting worsens the pain, lifting the leg straight out also worsens the pain. 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 Pain is the worst in buttocks, pain can down leg on bad days, not sure what makes a day bad. Walking helps. He does lift weights and in general feels good when working out but avoids lifting and squats . Treatment Goals Patient/Caregiver Goals Decrease pain, be able to sit/ drive without pain. Prior Functional Status Baseline Function- ADL's Independent Baseline Function- Mobility Independent Current Functional Impairments (Reported) Functional Limitations- ADL's sitting and driving immediately cause pain/ tingling Personal Factors Other Personal Factors That May Effect vision/hearing impaired Therapy/Recovery PT-OP-C Subjective Start: 07/18/20 07:41 Freq: Status: Active Protocol: Document 08/12/20 11:00 AMB (Rec: 08/12/20 11:47 AMB [id number]) OP-PT Subjective Patient Comments Patient Comments Slightly more pain this week when sitting, but can flex spine more. PT-OP-F Manual Assessment Start: 07/18/20 07:41 Freq: Status: Active Protocol: Document 07/18/20 14:30 AMB (Rec: 07/19/20 14:56 AMB [email or web address]) Manual Assessments Soft Tissue Assessment Soft Tissue Mobility Assessment Significant tightness at hamstrings, less so through gluteals, mild tenderness over piriformis, increased tone at lumbar paraspinals bilaterally Other Manual Assessments Other Manual Assessments long axis distraction relieves sx PT-OP-G Mobility & Gait Start: 07/18/20 07:41 Freq: Status: Active Protocol: Document 07/18/20 14:30 AMB (Rec: 07/19/20 14:56 AMB [email or web address]) OP Gait Assessment Gait Gait Assistance Required: Independent PT-OP-J Posture/Palpation/Skin Start: 07/18/20 07:41 Freq: Status: Active Protocol: Document 07/18/20 14:30 AMB (Rec: 07/19/20 14:56 AMB [email or web address]) Posture Evaluation Comments Posture Comments Increased lumbar lordosis PT-OP-K Range of Motion Start: 07/18/20 07:41 Freq: Status: Active Protocol: Document 07/18/20 14:30 AMB (Rec: 07/19/20 14:56 AMB [email or web address]) Lumbar Spine Range of Motion Lumbar Spine Active Degrees Testing Position Standing Flexion 10 Extension 20 Lateral Flexion Left 10 Lateral Flexion Right 20 Comments flexion and L SB painful, extension and R SB not painful Hip Goniometric Range of Motion Hip ROM Limitations Hip ROM Limitations Soft Tissue Tightness,Pain Comments SLR: 55 degrees on L, 70 on R PT-OP-L Special Tests Start: 07/18/20 07:41 Freq: Status: Active Protocol: Document 07/18/20 14:30 AMB (Rec: 07/19/20 14:56 AMB [email or web address]) Special Tests Lumbar Spine Special Tests Straight Leg Raise Test Results + Slump Test Results + PT-OP-M Strength Start: 07/18/20 07:41 Freq: Status: Active Protocol: Document 07/18/20 14:30 AMB (Rec: 07/19/20 14:56 AMB [email or web address]) Hip Strength Hip Manual Muscle Testing Left Flexion (L2) 3 Fair Extension (S1) 4 Good Abduction 4 Good Adduction 4 Good Right Flexion (L2) 4+ Good+ Extension (S1) 5 Normal Abduction 5 Normal Adduction 5 Normal PT-OP-Q Treatments Start: 07/18/20 07:41 Freq: Status: Active Protocol: Document 08/12/20 11:00 AMB (Rec: 08/12/20 11:47 AMB [id number]) Therapeutic Exercises Supine Exercises 4 Supine Exercise Name dying bug Reps/Minutes 30x2 2 Supine Exercise Name active hamstring stretch Reps/Minutes 2x10 Sidelying Exercises 2 Sidelying Exercise Name clam Reps/Minutes #2 t band Sitting Exercises 2 Sitting Exercise Name hip abd/ext Reps/Minutes 10 ea #2 band 1 Sitting Exercise Name active hamstring stretch Reps/Minutes 30x2 Standing Exercises 2 Standing Exercise Name hamstring stretch Reps/Minutes 30x2 Comments on stair Manual Therapy Treatment Manual Techniques 1 Type long axis traction Comments then hamstring contract relax PT-OP-R Modalities Start: 07/18/20 07:41 Freq: Status: Active Protocol: Document 08/02/20 08:15 AMB (Rec: 08/02/20 09:00 AMB [id number]) Hot Pack/Cold Pack Treatment Hot Pack Location low back Patient Position Hooklying Treatment Duration (minutes) 10 PT-OP-T Assessment and Plan Start: 07/18/20 07:41 Freq: Status: Active Protocol: Document 08/12/20 11:00 AMB (Rec: 08/12/20 11:47 AMB [id number]) Physical Therapy Assessment Assessment Summary Assessment Bryan continues to have mild weakness in the left leg with hip extension, abduction and knee flexion. Flexibility is progressing well but not equal to the other side. Physical Therapy Plan Next Visit Focus/Plan Next Note Type Treatment Note Next Visit Plan Continue to progress flexibility.
--- NOTE | 2020-08-19 11:55 | PT.OTN ---
Current Diagnoses Sciatica, unspecified side (08/19/20) Physical Therapy Treatment Note PT-OP-A Visit Information Start: 07/18/20 07:41 Freq: Status: Active Protocol: Document 08/19/20 11:43 MA (Rec: 08/19/20 11:55 MA [email or web address]) Out-Patient Physical Therapy Visit Information Visit Information Visit Type Treatment Note Visit Start Time 11:03 Visit Stop Time 11:43 Total Visit Minutes 40 Visit Number 9 Number of NEWSPAPER REPORTER Visits 1 PT-OP-B Current Condition Start: 07/18/20 07:41 Freq: Status: Active Protocol: Document 07/18/20 14:27 AMB (Rec: 07/18/20 14:42 AMB [id number]) Current Condition History of Current Condition Onset Date November 2019 Current Complaints back pain with L LE radiation History of Current Condition Joaniear notes the first onset of back pain was in November getting out of the car. It got better, but not all the way. In April he got pain in his left buttocks, and about 3 weeks ago it progressed to tingling all the way to his calf down the posteriolateral aspect. Sitting worsens the pain, lifting the leg straight out also worsens the pain. 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 Pain is the worst in buttocks, pain can down leg on bad days, not sure what makes a day bad. Walking helps. He does lift weights and in general feels good when working out but avoids lifting and squats . Treatment Goals Patient/Caregiver Goals Decrease pain, be able to sit/ drive without pain. Prior Functional Status Baseline Function- ADL's Independent Baseline Function- Mobility Independent Current Functional Impairments (Reported) Functional Limitations- ADL's sitting and driving immediately cause pain/ tingling Personal Factors Other Personal Factors That May Effect vision/hearing impaired Therapy/Recovery PT-OP-C Subjective Start: 07/18/20 07:41 Freq: Status: Active Protocol: Document 08/19/20 11:43 MA (Rec: 08/19/20 11:55 MA [email or web address]) OP-PT Subjective Patient Comments Patient Comments Just finished working out at the gym. Pt states the tingling has been getting a lot better. PT-OP-F Manual Assessment Start: 07/18/20 07:41 Freq: Status: Active Protocol: Document 07/18/20 14:30 AMB (Rec: 07/19/20 14:56 AMB [email or web address]) Manual Assessments Soft Tissue Assessment Soft Tissue Mobility Assessment Significant tightness at hamstrings, less so through gluteals, mild tenderness over piriformis, increased tone at lumbar paraspinals bilaterally Other Manual Assessments Other Manual Assessments long axis distraction relieves sx PT-OP-G Mobility & Gait Start: 07/18/20 07:41 Freq: Status: Active Protocol: Document 07/18/20 14:30 AMB (Rec: 07/19/20 14:56 AMB [email or web address]) OP Gait Assessment Gait Gait Assistance Required: Independent PT-OP-J Posture/Palpation/Skin Start: 07/18/20 07:41 Freq: Status: Active Protocol: Document 07/18/20 14:30 AMB (Rec: 07/19/20 14:56 AMB [email or web address]) Posture Evaluation Comments Posture Comments Increased lumbar lordosis PT-OP-K Range of Motion Start: 07/18/20 07:41 Freq: Status: Active Protocol: Document 07/18/20 14:30 AMB (Rec: 07/19/20 14:56 AMB [email or web address]) Lumbar Spine Range of Motion Lumbar Spine Active Degrees Testing Position Standing Flexion 10 Extension 20 Lateral Flexion Left 10 Lateral Flexion Right 20 Comments flexion and L SB painful, extension and R SB not painful Hip Goniometric Range of Motion Hip ROM Limitations Hip ROM Limitations Soft Tissue Tightness,Pain Comments SLR: 55 degrees on L, 70 on R PT-OP-L Special Tests Start: 07/18/20 07:41 Freq: Status: Active Protocol: Document 07/18/20 14:30 AMB (Rec: 07/19/20 14:56 AMB [email or web address]) Special Tests Lumbar Spine Special Tests Straight Leg Raise Test Results + Slump Test Results + PT-OP-M Strength Start: 07/18/20 07:41 Freq: Status: Active Protocol: Document 07/18/20 14:30 AMB (Rec: 07/19/20 14:56 AMB [email or web address]) Hip Strength Hip Manual Muscle Testing Left Flexion (L2) 3 Fair Extension (S1) 4 Good Abduction 4 Good Adduction 4 Good Right Flexion (L2) 4+ Good+ Extension (S1) 5 Normal Abduction 5 Normal Adduction 5 Normal PT-OP-Q Treatments Start: 07/18/20 07:41 Freq: Status: Active Protocol: Document 08/19/20 11:43 MA (Rec: 08/19/20 11:55 MA [email or web address]) Therapeutic Exercises Supine Exercises SLR Supine Exercise Name SLR Reps/Minutes 2x10 5 Supine Exercise Name single leg bridge Reps/Minutes 2x15 4 Supine Exercise Name dying bug Reps/Minutes 30x1 2 Supine Exercise Name active hamstring stretch Reps/Minutes 2x10 Sidelying Exercises 2 Sidelying Exercise Name clam Reps/Minutes #2 t band 1 Sidelying Exercise Name side plank modified with kneeling Reps/Minutes 30x2 Comments Added side tap to mat Sitting Exercises 1 Sitting Exercise Name active hamstring stretch Reps/Minutes 30x2 Other Exercises Sciatic Nerve [place] Other Exercise Name Seated Side left Reps/Minutes 2x10 Manual Therapy Treatment Manual Techniques 1 Type long axis traction Comments With ER for hip, IR for back PT-OP-R Modalities Start: 07/18/20 07:41 Freq: Status: Active Protocol: Document 08/02/20 08:15 AMB (Rec: 08/02/20 09:00 AMB [id number]) Hot Pack/Cold Pack Treatment Hot Pack Location low back Patient Position Hooklying Treatment Duration (minutes) 10 PT-OP-T Assessment and Plan Start: 07/18/20 07:41 Freq: Status: Active Protocol: Document 08/19/20 11:43 MA (Rec: 08/19/20 11:55 MA [email or web address]) Physical Therapy Assessment Assessment Summary Assessment Bryan had decreased tingling after long axis distraction of hip. Continues to have nerve pain during active and passive HS stretching. Unable to do sciatic nerve glide supine today due to increased pain/tingling so performed it seated with good results and no pain Physical Therapy Plan Frequency and Duration Frequency of Treatment 2x/wk Duration of Treatment 8 weeks Plan of Care Start Date 07/18/20 Plan of Care End Date 09/12/20 Next Visit Focus/Plan Next Note Type Treatment Note Next Visit Plan Continue to progress flexibility.
--- NOTE | 2020-08-22 08:18 | PT.OTN ---
Current Diagnoses Sciatica, unspecified side (08/22/20) Physical Therapy Treatment Note PT-OP-A Visit Information Start: 07/18/20 07:41 Freq: Status: Active Protocol: Document 08/22/20 07:30 AMB (Rec: 08/22/20 08:13 AMB [id number]) Out-Patient Physical Therapy Visit Information Visit Information Visit Type Treatment Note Visit Start Time 07:31 Visit Stop Time 08:15 Total Visit Minutes 44 Visit Number 10 Number of STUDENT EDUCATION SPECIALIST Visits 0 PT-OP-B Current Condition Start: 07/18/20 07:41 Freq: Status: Active Protocol: Document 07/18/20 14:27 AMB (Rec: 07/18/20 14:42 AMB [id number]) Current Condition History of Current Condition Onset Date November 2019 Current Complaints back pain with L LE radiation History of Current Condition Joaniear notes the first onset of back pain was in November getting out of the car. It got better, but not all the way. In April he got pain in his left buttocks, and about 3 weeks ago it progressed to tingling all the way to his calf down the posteriolateral aspect. Sitting worsens the pain, lifting the leg straight out also worsens the pain. 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 Pain is the worst in buttocks, pain can down leg on bad days, not sure what makes a day bad. Walking helps. He does lift weights and in general feels good when working out but avoids lifting and squats . Treatment Goals Patient/Caregiver Goals Decrease pain, be able to sit/ drive without pain. Prior Functional Status Baseline Function- ADL's Independent Baseline Function- Mobility Independent Current Functional Impairments (Reported) Functional Limitations- ADL's sitting and driving immediately cause pain/ tingling Personal Factors Other Personal Factors That May Effect vision/hearing impaired Therapy/Recovery PT-OP-C Subjective Start: 07/18/20 07:41 Freq: Status: Active Protocol: Document 08/22/20 07:30 AMB (Rec: 08/22/20 08:13 AMB [id number]) OP-PT Subjective Patient Comments Patient Comments Pt states that overall he is feeling better, especially with driving, but tingling can still go down leg when he sits at work. Gym workout is going better. PT-OP-F Manual Assessment Start: 07/18/20 07:41 Freq: Status: Active Protocol: Document 07/18/20 14:30 AMB (Rec: 07/19/20 14:56 AMB [email or web address]) Manual Assessments Soft Tissue Assessment Soft Tissue Mobility Assessment Significant tightness at hamstrings, less so through gluteals, mild tenderness over piriformis, increased tone at lumbar paraspinals bilaterally Other Manual Assessments Other Manual Assessments long axis distraction relieves sx PT-OP-G Mobility & Gait Start: 07/18/20 07:41 Freq: Status: Active Protocol: Document 07/18/20 14:30 AMB (Rec: 07/19/20 14:56 AMB [email or web address]) OP Gait Assessment Gait Gait Assistance Required: Independent PT-OP-J Posture/Palpation/Skin Start: 07/18/20 07:41 Freq: Status: Active Protocol: Document 07/18/20 14:30 AMB (Rec: 07/19/20 14:56 AMB [email or web address]) Posture Evaluation Comments Posture Comments Increased lumbar lordosis PT-OP-K Range of Motion Start: 07/18/20 07:41 Freq: Status: Active Protocol: Document 07/18/20 14:30 AMB (Rec: 07/19/20 14:56 AMB [email or web address]) Lumbar Spine Range of Motion Lumbar Spine Active Degrees Testing Position Standing Flexion 10 Extension 20 Lateral Flexion Left 10 Lateral Flexion Right 20 Comments flexion and L SB painful, extension and R SB not painful Hip Goniometric Range of Motion Hip ROM Limitations Hip ROM Limitations Soft Tissue Tightness,Pain Comments SLR: 55 degrees on L, 70 on R PT-OP-L Special Tests Start: 07/18/20 07:41 Freq: Status: Active Protocol: Document 07/18/20 14:30 AMB (Rec: 07/19/20 14:56 AMB [email or web address]) Special Tests Lumbar Spine Special Tests Straight Leg Raise Test Results + Slump Test Results + PT-OP-M Strength Start: 07/18/20 07:41 Freq: Status: Active Protocol: Document 07/18/20 14:30 AMB (Rec: 07/19/20 14:56 AMB [email or web address]) Hip Strength Hip Manual Muscle Testing Left Flexion (L2) 3 Fair Extension (S1) 4 Good Abduction 4 Good Adduction 4 Good Right Flexion (L2) 4+ Good+ Extension (S1) 5 Normal Abduction 5 Normal Adduction 5 Normal PT-OP-Q Treatments Start: 07/18/20 07:41 Freq: Status: Active Protocol: Document 08/22/20 07:30 AMB (Rec: 08/22/20 08:18 AMB [id number]) Therapeutic Exercises Supine Exercises 5 Supine Exercise Name single leg bridge Reps/Minutes 2x15 4 Supine Exercise Name dying bug Reps/Minutes 30x1 2 Supine Exercise Name active hamstring stretch Reps/Minutes 2x10 Sidelying Exercises 1 Sidelying Exercise Name side plank modified with kneeling Reps/Minutes 30x2 Comments Added side tap to mat Standing Exercises 2 Standing Exercise Name hamstring stretch Reps/Minutes 30x2 Comments on stair 1 Standing Exercise Name calf stretch Reps/Minutes 30x2 Comments on JONNY Other Exercises Sciatic Nerve [place] Other Exercise Name Seated Side left Reps/Minutes 2x10 Manual Therapy Treatment Manual Techniques 1 Type long axis traction PT-OP-R Modalities Start: 07/18/20 07:41 Freq: Status: Active Protocol: Document 08/02/20 08:15 AMB (Rec: 08/02/20 09:00 AMB [id number]) Hot Pack/Cold Pack Treatment Hot Pack Location low back Patient Position Hooklying Treatment Duration (minutes) 10 PT-OP-T Assessment and Plan Start: 07/18/20 07:41 Freq: Status: Active Protocol: Document 08/22/20 07:30 AMB (Rec: 08/22/20 08:13 AMB [id number]) Physical Therapy Assessment Goals Three Impairment exercise Short Term Goal (STG) Bryan will be independent with a gym exercise program that does not exacerbate his symptoms. PROGRESS MADE: can do squats but not lifts STG Duration 4 weeks Two Impairment pain Short Term Goal (STG) Bryan will sit for 5 minutes without an increase in his pain. PROGRESS MADE: dependent upon posture- slouching is worse STG Duration 4 weeks Contracts Advisor Goal (LTG) Bryan will drive from his home to work without an increase in pain. LTG Duration MET One Impairment ROM Short Term Goal (STG) Bryan will improve his lumbar flexion AROM to 30 degrees without tingling down his leg. STG Duration MET Nursing Home Goal (LTG) Bryan will increase his straight leg raise AROM to 70 degrees without leg or back sx . PROGRESS MADE 50 degrees LTG Duration 8 weeks Assessment Summary Assessment Bryan has showed good improvement with symptoms and range of motion. Biggest issue is sitting down at work, especially in slouched posture, and getting tingling.
--- NOTE | 2020-08-30 10:18 | PT.OTN ---
Current Diagnoses Sciatica, unspecified side (08/30/20) Physical Therapy Treatment Note PT-OP-A Visit Information Start: 07/18/20 07:41 Freq: Status: Active Protocol: Document 08/30/20 08:10 AMB (Rec: 08/30/20 08:17 AMB [id number]) Out-Patient Physical Therapy Visit Information Visit Information Visit Type Treatment Note Visit Start Time 07:31 Visit Stop Time 08:10 Total Visit Minutes 39 Visit Number 11 Number of CREATIVE SERVICES SPECIALIST Visits 0 PT-OP-B Current Condition Start: 07/18/20 07:41 Freq: Status: Active Protocol: Document 07/18/20 14:27 AMB (Rec: 07/18/20 14:42 AMB [id number]) Current Condition History of Current Condition Onset Date November 2019 Current Complaints back pain with L LE radiation History of Current Condition Joaniear notes the first onset of back pain was in November getting out of the car. It got better, but not all the way. In April he got pain in his left buttocks, and about 3 weeks ago it progressed to tingling all the way to his calf down the posteriolateral aspect. Sitting worsens the pain, lifting the leg straight out also worsens the pain. 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 Pain is the worst in buttocks, pain can down leg on bad days, not sure what makes a day bad. Walking helps. He does lift weights and in general feels good when working out but avoids lifting and squats . Treatment Goals Patient/Caregiver Goals Decrease pain, be able to sit/ drive without pain. Prior Functional Status Baseline Function- ADL's Independent Baseline Function- Mobility Independent Current Functional Impairments (Reported) Functional Limitations- ADL's sitting and driving immediately cause pain/ tingling Personal Factors Other Personal Factors That May Effect vision/hearing impaired Therapy/Recovery PT-OP-C Subjective Start: 07/18/20 07:41 Freq: Status: Active Protocol: Document 08/30/20 08:10 AMB (Rec: 08/30/20 08:17 AMB [id number]) OP-PT Subjective Patient Comments Patient Comments Pt states he was moving yesterday and driving in his car really flared up his pain 6/10. later in the day he tried sitting on a pillow and that seemed to really help. PT-OP-F Manual Assessment Start: 07/18/20 07:41 Freq: Status: Active Protocol: Document 07/18/20 14:30 AMB (Rec: 07/19/20 14:56 AMB [email or web address]) Manual Assessments Soft Tissue Assessment Soft Tissue Mobility Assessment Significant tightness at hamstrings, less so through gluteals, mild tenderness over piriformis, increased tone at lumbar paraspinals bilaterally Other Manual Assessments Other Manual Assessments long axis distraction relieves sx PT-OP-G Mobility & Gait Start: 07/18/20 07:41 Freq: Status: Active Protocol: Document 07/18/20 14:30 AMB (Rec: 07/19/20 14:56 AMB [email or web address]) OP Gait Assessment Gait Gait Assistance Required: Independent PT-OP-J Posture/Palpation/Skin Start: 07/18/20 07:41 Freq: Status: Active Protocol: Document 07/18/20 14:30 AMB (Rec: 07/19/20 14:56 AMB [email or web address]) Posture Evaluation Comments Posture Comments Increased lumbar lordosis PT-OP-K Range of Motion Start: 07/18/20 07:41 Freq: Status: Active Protocol: Document 07/18/20 14:30 AMB (Rec: 07/19/20 14:56 AMB [email or web address]) Lumbar Spine Range of Motion Lumbar Spine Active Degrees Testing Position Standing Flexion 10 Extension 20 Lateral Flexion Left 10 Lateral Flexion Right 20 Comments flexion and L SB painful, extension and R SB not painful Hip Goniometric Range of Motion Hip ROM Limitations Hip ROM Limitations Soft Tissue Tightness,Pain Comments SLR: 55 degrees on L, 70 on R PT-OP-L Special Tests Start: 07/18/20 07:41 Freq: Status: Active Protocol: Document 07/18/20 14:30 AMB (Rec: 07/19/20 14:56 AMB [email or web address]) Special Tests Lumbar Spine Special Tests Straight Leg Raise Test Results + Slump Test Results + PT-OP-M Strength Start: 07/18/20 07:41 Freq: Status: Active Protocol: Document 07/18/20 14:30 AMB (Rec: 07/19/20 14:56 AMB [email or web address]) Hip Strength Hip Manual Muscle Testing Left Flexion (L2) 3 Fair Extension (S1) 4 Good Abduction 4 Good Adduction 4 Good Right Flexion (L2) 4+ Good+ Extension (S1) 5 Normal Abduction 5 Normal Adduction 5 Normal PT-OP-Q Treatments Start: 07/18/20 07:41 Freq: Status: Active Protocol: Document 08/30/20 07:30 AMB (Rec: 08/30/20 10:11 AMB [id number]) Therapeutic Exercises Supine Exercises 6 Supine Exercise Name hip flexor stretch Reps/Minutes 30x2 3 Supine Exercise Name SLTC Reps/Minutes 30x3 2 Supine Exercise Name active hamstring stretch Reps/Minutes 2x10 1 Supine Exercise Name piriformis stretch Reps/Minutes 2x30 Prone Exercises 1 Prone Exercise Name prone extension on forearms Comments 10 Standing Exercises 2 Standing Exercise Name hamstring stretch Reps/Minutes 30x2 Comments on stair PT-OP-R Modalities Start: 07/18/20 07:41 Freq: Status: Active Protocol: Document 08/02/20 08:15 AMB (Rec: 08/02/20 09:00 AMB [id number]) Hot Pack/Cold Pack Treatment Hot Pack Location low back Patient Position Hooklying Treatment Duration (minutes) 10 PT-OP-T Assessment and Plan Start: 07/18/20 07:41 Freq: Status: Active Protocol: Document 08/30/20 08:10 AMB (Rec: 08/30/20 08:17 AMB [id number]) Physical Therapy Assessment Assessment Summary Assessment Bryan continues to need follow up about which of his HEP to continue with. Stretches continue to relieve pain but sitting continues to irritate. Physical Therapy Plan Next Visit Focus/Plan Next Note Type Treatment Note Next Visit Plan possible d/c as pt is moving, will decide next visit
--- NOTE | 2020-09-01 09:14 | PT.OTN ---
Current Diagnoses Sciatica, unspecified side (09/01/20) Physical Therapy Treatment Note PT-OP-A Visit Information Start: 07/18/20 07:41 Freq: Status: Active Protocol: Document 09/01/20 07:30 AMB (Rec: 09/01/20 08:22 AMB [email or web address]) Out-Patient Physical Therapy Visit Information Visit Information Visit Type Treatment Note Visit Start Time 07:32 Visit Stop Time 08:12 Total Visit Minutes 40 Visit Number 12 Number of ASSISTANT WAREHOUSE MANAGER Visits 0 PT-OP-B Current Condition Start: 07/18/20 07:41 Freq: Status: Active Protocol: Document 07/18/20 14:27 AMB (Rec: 07/18/20 14:42 AMB [id number]) Current Condition History of Current Condition Onset Date November 2019 Current Complaints back pain with L LE radiation History of Current Condition Chamar notes the first onset of back pain was in November getting out of the car. It got better, but not all the way. In April he got pain in his left buttocks, and about 3 weeks ago it progressed to tingling all the way to his calf down the posteriolateral aspect. Sitting worsens the pain, lifting the leg straight out also worsens the pain. 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 Pain is the worst in buttocks, pain can down leg on bad days, not sure what makes a day bad. Walking helps. He does lift weights and in general feels good when working out but avoids lifting and squats . Treatment Goals Patient/Caregiver Goals Decrease pain, be able to sit/ drive without pain. Prior Functional Status Baseline Function- ADL's Independent Baseline Function- Mobility Independent Current Functional Impairments (Reported) Functional Limitations- ADL's sitting and driving immediately cause pain/ tingling Personal Factors Other Personal Factors That May Effect vision/hearing impaired Therapy/Recovery PT-OP-C Subjective Start: 07/18/20 07:41 Freq: Status: Active Protocol: Document 09/01/20 07:30 AMB (Rec: 09/01/20 08:22 AMB [email or web address]) OP-PT Subjective Patient Comments Patient Comments Pt states he was quite sore after driving down from [place] this morning. PT-OP-F Manual Assessment Start: 07/18/20 07:41 Freq: Status: Active Protocol: Document 07/18/20 14:30 AMB (Rec: 07/19/20 14:56 AMB [email or web address]) Manual Assessments Soft Tissue Assessment Soft Tissue Mobility Assessment Significant tightness at hamstrings, less so through gluteals, mild tenderness over piriformis, increased tone at lumbar paraspinals bilaterally Other Manual Assessments Other Manual Assessments long axis distraction relieves sx PT-OP-G Mobility & Gait Start: 07/18/20 07:41 Freq: Status: Active Protocol: Document 07/18/20 14:30 AMB (Rec: 07/19/20 14:56 AMB [email or web address]) OP Gait Assessment Gait Gait Assistance Required: Independent PT-OP-J Posture/Palpation/Skin Start: 07/18/20 07:41 Freq: Status: Active Protocol: Document 07/18/20 14:30 AMB (Rec: 07/19/20 14:56 AMB [email or web address]) Posture Evaluation Comments Posture Comments Increased lumbar lordosis PT-OP-K Range of Motion Start: 07/18/20 07:41 Freq: Status: Active Protocol: Document 07/18/20 14:30 AMB (Rec: 07/19/20 14:56 AMB [email or web address]) Lumbar Spine Range of Motion Lumbar Spine Active Degrees Testing Position Standing Flexion 10 Extension 20 Lateral Flexion Left 10 Lateral Flexion Right 20 Comments flexion and L SB painful, extension and R SB not painful Hip Goniometric Range of Motion Hip ROM Limitations Hip ROM Limitations Soft Tissue Tightness,Pain Comments SLR: 55 degrees on L, 70 on R PT-OP-L Special Tests Start: 07/18/20 07:41 Freq: Status: Active Protocol: Document 07/18/20 14:30 AMB (Rec: 07/19/20 14:56 AMB [email or web address]) Special Tests Lumbar Spine Special Tests Straight Leg Raise Test Results + Slump Test Results + PT-OP-M Strength Start: 07/18/20 07:41 Freq: Status: Active Protocol: Document 07/18/20 14:30 AMB (Rec: 07/19/20 14:56 AMB [email or web address]) Hip Strength Hip Manual Muscle Testing Left Flexion (L2) 3 Fair Extension (S1) 4 Good Abduction 4 Good Adduction 4 Good Right Flexion (L2) 4+ Good+ Extension (S1) 5 Normal Abduction 5 Normal Adduction 5 Normal PT-OP-Q Treatments Start: 07/18/20 07:41 Freq: Status: Active Protocol: Document 11/19/20 07:30 AMB (Rec: 09/01/20 08:22 AMB [email or web address]) Therapeutic Exercises Supine Exercises 6 Supine Exercise Name hip flexor stretch Reps/Minutes 30x2 Comments standing and kneeling variations 3 Supine Exercise Name SLTC Reps/Minutes 30x3 2 Supine Exercise Name active hamstring stretch Reps/Minutes 2x10 1 Supine Exercise Name piriformis stretch Reps/Minutes 2x30 Therapeutic Activity Therapeutic Activity 1 Name body mechanics of driving Reps/Minutes 10 Comments worked with pillows behind back and under leg, suggested avoiding knee extension position for extended period of time Manual Therapy Treatment Manual Traction Lumbar Details long axis traction Body Position Supine Comments L leg PT-OP-R Modalities Start: 07/18/20 07:41 Freq: Status: Active Protocol: Document 08/02/20 08:15 AMB (Rec: 08/02/20 09:00 AMB [id number]) Hot Pack/Cold Pack Treatment Hot Pack Location low back Patient Position Hooklying Treatment Duration (minutes) 10 PT-OP-T Assessment and Plan Start: 07/18/20 07:41 Freq: Status: Active Protocol: Document 09/01/20 07:30 AMB (Rec: 09/01/20 08:22 AMB [email or web address]) Physical Therapy Assessment Assessment Summary Assessment Pt started appt with 55 deg SLR and ended with 65 without pain/tingling. Pain with driving is his biggest problem at this time. Pt wanting to take a break for awhile due to moving to [place], suggested we schedule in October, and if he is feeling good he can call ahead of time to cancel, if still dealing with it in October we will see him 1x/week. Physical Therapy Plan Next Visit Focus/Plan Next Note Type Treatment Note Next Visit Plan possible d/c as pt is moving, will decide next visit
--- NOTE | 2020-10-19 15:30 | PT.OTN ---
Current Diagnoses Sciatica, unspecified side (10/19/20) Physical Therapy Treatment Note PT-OP-A Visit Information Start: 07/18/20 07:41 Freq: Status: Active Protocol: Document 10/19/20 12:45 AMB (Rec: 10/19/20 15:24 AMB [email or web address]) Out-Patient Physical Therapy Visit Information Visit Information Visit Type Progress Note Visit Start Time 12:45 Visit Stop Time 13:30 Total Visit Minutes 45 Visit Number 13 PT-OP-B Current Condition Start: 07/18/20 07:41 Freq: Status: Active Protocol: Document 07/18/20 14:27 AMB (Rec: 07/18/20 14:42 AMB [id number]) Current Condition History of Current Condition Onset Date November 2019 Current Complaints back pain with L LE radiation History of Current Condition Chamar notes the first onset of back pain was in November getting out of the car. It got better, but not all the way. In April he got pain in his left buttocks, and about 3 weeks ago it progressed to tingling all the way to his calf down the posteriolateral aspect. Sitting worsens the pain, lifting the leg straight out also worsens the pain. 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 Pain is the worst in buttocks, pain can down leg on bad days, not sure what makes a day bad. Walking helps. He does lift weights and in general feels good when working out but avoids lifting and squats . Treatment Goals Patient/Caregiver Goals Decrease pain, be able to sit/ drive without pain. 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 PT-OP-F Manual Assessment Start: 07/18/20 07:41 Freq: Status: Active Protocol: Document 07/18/20 14:30 AMB (Rec: 07/19/20 14:56 AMB [email or web address]) Manual Assessments Soft Tissue Assessment Soft Tissue Mobility Assessment Significant tightness at hamstrings, less so through gluteals, mild tenderness over piriformis, increased tone at lumbar paraspinals bilaterally Other Manual Assessments Other Manual Assessments long axis distraction relieves sx PT-OP-G Mobility & Gait Start: 07/18/20 07:41 Freq: Status: Active Protocol: Document 07/18/20 14:30 AMB (Rec: 07/19/20 14:56 AMB [email or web address]) OP Gait Assessment Gait Gait Assistance Required: Independent PT-OP-J Posture/Palpation/Skin Start: 07/18/20 07:41 Freq: Status: Active Protocol: Document 07/18/20 14:30 AMB (Rec: 07/19/20 14:56 AMB [email or web address]) Posture Evaluation Comments Posture Comments Increased lumbar lordosis PT-OP-K Range of Motion Start: 07/18/20 07:41 Freq: Status: Active Protocol: Document 10/19/20 12:45 AMB (Rec: 10/19/20 15:29 AMB [email or web address]) Lumbar Spine Range of Motion Lumbar Spine Active Degrees Flexion 30 Hip Goniometric Range of Motion Hip ROM Limitations Comments SLR: 65 PT-OP-L Special Tests Start: 07/18/20 07:41 Freq: Status: Active Protocol: Document 07/18/20 14:30 AMB (Rec: 07/19/20 14:56 AMB [email or web address]) Special Tests Lumbar Spine Special Tests Straight Leg Raise Test Results + Slump Test Results + PT-OP-M Strength Start: 07/18/20 07:41 Freq: Status: Active Protocol: Document 07/18/20 14:30 AMB (Rec: 07/19/20 14:56 AMB [email or web address]) Hip Strength Hip Manual Muscle Testing Left Flexion (L2) 3 Fair Extension (S1) 4 Good Abduction 4 Good Adduction 4 Good Right Flexion (L2) 4+ Good+ Extension (S1) 5 Normal Abduction 5 Normal Adduction 5 Normal PT-OP-Q Treatments Start: 07/18/20 07:41 Freq: Status: Active Protocol: Document 10/19/20 12:45 AMB (Rec: 10/19/20 15:24 AMB [email or web address]) Therapeutic Exercises Supine Exercises 2 Supine Exercise Name active hamstring stretch Reps/Minutes 2x10 1 Supine Exercise Name piriformis stretch Reps/Minutes 2x30 Sitting Exercises 2 Sitting Exercise Name sciatic nerve glide Standing Exercises 2 Standing Exercise Name hamstring stretch Reps/Minutes 30x2 Comments on stair PT-OP-R Modalities Start: 07/18/20 07:41 Freq: Status: Active Protocol: Document 08/02/20 08:15 AMB (Rec: 08/02/20 09:00 AMB [id number]) Hot Pack/Cold Pack Treatment Hot Pack Location low back Patient Position Hooklying Treatment Duration (minutes) 10 PT-OP-T Assessment and Plan Start: 07/18/20 07:41 Freq: Status: Active Protocol: Document 10/19/20 12:45 AMB (Rec: 10/19/20 15:24 AMB [email or web address]) Physical Therapy Assessment Goals Three Impairment exercise Short Term Goal (STG) Bryan will be independent with a gym exercise program that does not exacerbate his symptoms. STG Duration MET Two Impairment pain Short Term Goal (STG) Bryan will sit for 5 minutes without an increase in his pain. STG Duration MET Pill Machine Operator Goal (LTG) Bryan will drive from his home to work without an increase in pain. LTG Duration MET One Impairment ROM Short Term Goal (STG) Bryan will improve his lumbar flexion AROM to 30 degrees without tingling down his leg. STG Duration MET Longterm Goal (LTG) Bryan will increase his straight leg raise AROM to 70 degrees without leg or back sx . PROGRESS MADE 60 degrees LTG Duration 8 weeks Assessment Summary Assessment Pt has shown good improvement, but we do need to progress the challenge of his exercises now that he is doing better, and then we will reassess has he tapers of his prednisone to make sure his sx do not return. Physical Therapy Plan Frequency and Duration Frequency of Treatment 1x/Week Duration of Treatment 8 weeks Plan of Care Start Date 10/19/20 Plan of Care End Date 12/14/20 Therapeutic Interventions Therapeutic Interventions Home Exercise Program,Joint Mobilizations,Manual Therapy, Neuromuscular Re-education, Therapeutic Activities, Therapeutic Exercises Modalities Traction- Mechanical Next Visit Focus/Plan Next Note Type Treatment Note Next Visit Plan Progress ROM/strengthening so that pt can flex spine without sx.
--- NOTE | 2020-10-19 15:31 | PT.OPPOC ---
Physical, Occupational & Speech Therapy At [facility] Current Diagnoses Sciatica, unspecified side (10/19/20) Visit Care Team Role Provider Type Danielito Kamara DO Primary Care Provider Physician Specialty: Family Practice Address: [address] [place] [address], [id number] Email: MARANDA Nathan Attending Provider Advanced Still Cleaner Referring Provider Specialty: Address: [address] [place] [address], [id number] Email: Plan Of Care PT-OP-T Assessment and Plan Start: 07/18/20 07:41 Freq: Status: Active Protocol: Document 10/19/20 12:45 AMB (Rec: 10/19/20 15:24 AMB [email or web address]) Physical Therapy Assessment Goals Three Impairment exercise Short Term Goal (STG) Bryan will be independent with a gym exercise program that does not exacerbate his symptoms. STG Duration MET Two Impairment pain Short Term Goal (STG) Bryan will sit for 5 minutes without an increase in his pain. STG Duration MET Purchasing Manager Goal (LTG) Bryan will drive from his home to work without an increase in pain. LTG Duration MET One Impairment ROM Short Term Goal (STG) Bryan will improve his lumbar flexion AROM to 30 degrees without tingling down his leg. STG Duration MET Purchasing Manager Goal (LTG) Bryan will increase his straight leg raise AROM to 70 degrees without leg or back sx . PROGRESS MADE 60 degrees LTG Duration 8 weeks Assessment Summary Assessment Pt has shown good improvement, but we do need to progress the challenge of his exercises now that he is doing better, and then we will reassess has he tapers of his prednisone to make sure his sx do not return. Physical Therapy Plan Frequency and Duration Frequency of Treatment 1x/Week Duration of Treatment 8 weeks Plan of Care Start Date 10/19/20 Plan of Care End Date 12/14/20 Therapeutic Interventions Therapeutic Interventions Home Exercise Program,Joint Mobilizations,Manual Therapy, Neuromuscular Re-education, Therapeutic Activities, Therapeutic Exercises Modalities Traction- Mechanical Next Visit Focus/Plan Next Note Type Treatment Note Next Visit Plan Progress ROM/strengthening so that pt can flex spine without sx. Plan of Care Dates Plan of Care Start Date 10/19/20 Plan of Care End Date 12/14/20 Electronically Signed by: Megan Red, PT 10/19/20 [id number] Please Sign and Return: I have reviewed this Plan of Care and certify that the skilled therapy services above are required to meet the patient?s needs. Physician Signature Date Printed Name and Credentials Clinical Instructor Signature Printed Name and Credentials
--- NOTE | 2020-10-26 14:46 | PT.OTN ---
Current Diagnoses Sciatica, unspecified side (10/26/20) Physical Therapy Treatment Note PT-OP-A Visit Information Start: 07/18/20 07:41 Freq: Status: Active Protocol: Document 10/26/20 12:52 AMB (Rec: 10/26/20 13:32 AMB [id number]) Out-Patient Physical Therapy Visit Information Visit Information Visit Type Treatment Note Visit Start Time 12:53 Visit Stop Time 13:25 Total Visit Minutes 33 Visit Number 14 PT-OP-B Current Condition Start: 07/18/20 07:41 Freq: Status: Active Protocol: Document 07/18/20 14:27 AMB (Rec: 07/18/20 14:42 AMB [id number]) Current Condition History of Current Condition Onset Date November 2019 Current Complaints back pain with L LE radiation History of Current Condition Chamar notes the first onset of back pain was in November getting out of the car. It got better, but not all the way. In April he got pain in his left buttocks, and about 3 weeks ago it progressed to tingling all the way to his calf down the posteriolateral aspect. Sitting worsens the pain, lifting the leg straight out also worsens the pain. 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 Pain is the worst in buttocks, pain can down leg on bad days, not sure what makes a day bad. Walking helps. He does lift weights and in general feels good when working out but avoids lifting and squats . Treatment Goals Patient/Caregiver Goals Decrease pain, be able to sit/ drive without pain. Prior Functional Status Baseline Function- ADL's Independent Baseline Function- Mobility Independent Current Functional Impairments (Reported) Functional Limitations- ADL's sitting and driving immediately cause pain/ tingling Personal Factors Other Personal Factors That May Effect vision/hearing impaired Therapy/Recovery PT-OP-C Subjective Start: 07/18/20 07:41 Freq: Status: Active Protocol: Document 10/26/20 12:52 AMB (Rec: 10/26/20 13:32 AMB [id number]) OP-PT Subjective Patient Comments Patient Comments Pt is doing well, but will be on prednisone for the next few months, so wondering about how much his feeling better is because of that. PT-OP-F Manual Assessment Start: 07/18/20 07:41 Freq: Status: Active Protocol: Document 07/18/20 14:30 AMB (Rec: 07/19/20 14:56 AMB [email or web address]) Manual Assessments Soft Tissue Assessment Soft Tissue Mobility Assessment Significant tightness at hamstrings, less so through gluteals, mild tenderness over piriformis, increased tone at lumbar paraspinals bilaterally Other Manual Assessments Other Manual Assessments long axis distraction relieves sx PT-OP-G Mobility & Gait Start: 07/18/20 07:41 Freq: Status: Active Protocol: Document 07/18/20 14:30 AMB (Rec: 07/19/20 14:56 AMB [email or web address]) OP Gait Assessment Gait Gait Assistance Required: Independent PT-OP-J Posture/Palpation/Skin Start: 07/18/20 07:41 Freq: Status: Active Protocol: Document 07/18/20 14:30 AMB (Rec: 07/19/20 14:56 AMB [email or web address]) Posture Evaluation Comments Posture Comments Increased lumbar lordosis PT-OP-K Range of Motion Start: 07/18/20 07:41 Freq: Status: Active Protocol: Document 10/19/20 12:45 AMB (Rec: 10/19/20 15:29 AMB [email or web address]) Lumbar Spine Range of Motion Lumbar Spine Active Degrees Flexion 30 Hip Goniometric Range of Motion Hip ROM Limitations Comments SLR: 65 PT-OP-L Special Tests Start: 07/18/20 07:41 Freq: Status: Active Protocol: Document 07/18/20 14:30 AMB (Rec: 07/19/20 14:56 AMB [email or web address]) Special Tests Lumbar Spine Special Tests Straight Leg Raise Test Results + Slump Test Results + PT-OP-M Strength Start: 07/18/20 07:41 Freq: Status: Active Protocol: Document 07/18/20 14:30 AMB (Rec: 07/19/20 14:56 AMB [email or web address]) Hip Strength Hip Manual Muscle Testing Left Flexion (L2) 3 Fair Extension (S1) 4 Good Abduction 4 Good Adduction 4 Good Right Flexion (L2) 4+ Good+ Extension (S1) 5 Normal Abduction 5 Normal Adduction 5 Normal PT-OP-Q Treatments Start: 07/18/20 07:41 Freq: Status: Active Protocol: Document 10/26/20 12:52 AMB (Rec: 10/26/20 13:32 AMB [id number]) Therapeutic Exercises Supine Exercises 7 Supine Exercise Name supine bike Reps/Minutes 2x20 6 Supine Exercise Name hip flexor stretch Reps/Minutes 30x2 Comments standing and kneeling variations 2 Supine Exercise Name active hamstring stretch Reps/Minutes 2x10 1 Supine Exercise Name piriformis stretch Reps/Minutes 2x30 Prone Exercises 1 Prone Exercise Name full plank Comments 30x2 Sidelying Exercises 2 Sidelying Exercise Name clam Reps/Minutes #2 t band 1 Sidelying Exercise Name side plank modified with kneeling Reps/Minutes 30x2 Comments Added side tap to mat Manual Therapy Treatment Manual Traction Lumbar Details long axis traction Body Position Supine Comments L leg PT-OP-R Modalities Start: 07/18/20 07:41 Freq: Status: Active Protocol: Document 08/02/20 08:15 AMB (Rec: 08/02/20 09:00 AMB [id number]) Hot Pack/Cold Pack Treatment Hot Pack Location low back Patient Position Hooklying Treatment Duration (minutes) 10 PT-OP-T Assessment and Plan Start: 07/18/20 07:41 Freq: Status: Active Protocol: Document 10/26/20 12:52 AMB (Rec: 10/26/20 14:46 AMB [email or web address]) Physical Therapy Assessment Assessment Summary Assessment Bryan tolerated increased stretching, nerve glides today , possibly due to prednisone, but will be on low levels for a while, so difficult to tell if he is better due to PT or due to steroids, did tolerate significantly more than usual today. Physical Therapy Plan Next Visit Focus/Plan Next Note Type Treatment Note Next Visit Plan Pt is doing well, could consider d/c if continuing to do well
--- NOTE | 2020-11-25 16:12 | PT.OTN ---
Current Diagnoses Sciatica, unspecified side (10/26/20) Physical Therapy Treatment Note PT-OP-A Visit Information Start: 07/18/20 07:41 Freq: Status: Active Protocol: Document 10/26/20 12:52 AMB (Rec: 10/26/20 13:32 AMB [id number]) Out-Patient Physical Therapy Visit Information Visit Information Visit Type Treatment Note Visit Start Time 12:53 Visit Stop Time 13:25 Total Visit Minutes 33 Visit Number 14 PT-OP-B Current Condition Start: 07/18/20 07:41 Freq: Status: Active Protocol: Document 07/18/20 14:27 AMB (Rec: 07/18/20 14:42 AMB [id number]) Current Condition History of Current Condition Onset Date November 2019 Current Complaints back pain with L LE radiation History of Current Condition Chamar notes the first onset of back pain was in November getting out of the car. It got better, but not all the way. In April he got pain in his left buttocks, and about 3 weeks ago it progressed to tingling all the way to his calf down the posteriolateral aspect. Sitting worsens the pain, lifting the leg straight out also worsens the pain. 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 Pain is the worst in buttocks, pain can down leg on bad days, not sure what makes a day bad. Walking helps. He does lift weights and in general feels good when working out but avoids lifting and squats . Treatment Goals Patient/Caregiver Goals Decrease pain, be able to sit/ drive without pain. Prior Functional Status Baseline Function- ADL's Independent Baseline Function- Mobility Independent Current Functional Impairments (Reported) Functional Limitations- ADL's sitting and driving immediately cause pain/ tingling Personal Factors Other Personal Factors That May Effect vision/hearing impaired Therapy/Recovery PT-OP-C Subjective Start: 07/18/20 07:41 Freq: Status: Active Protocol: Document 10/26/20 12:52 AMB (Rec: 10/26/20 13:32 AMB [id number]) OP-PT Subjective Patient Comments Patient Comments Pt is doing well, but will be on prednisone for the next few months, so wondering about how much his feeling better is because of that. PT-OP-F Manual Assessment Start: 07/18/20 07:41 Freq: Status: Active Protocol: Document 07/18/20 14:30 AMB (Rec: 07/19/20 14:56 AMB [email or web address]) Manual Assessments Soft Tissue Assessment Soft Tissue Mobility Assessment Significant tightness at hamstrings, less so through gluteals, mild tenderness over piriformis, increased tone at lumbar paraspinals bilaterally Other Manual Assessments Other Manual Assessments long axis distraction relieves sx PT-OP-G Mobility & Gait Start: 07/18/20 07:41 Freq: Status: Active Protocol: Document 07/18/20 14:30 AMB (Rec: 07/19/20 14:56 AMB [email or web address]) OP Gait Assessment Gait Gait Assistance Required: Independent PT-OP-J Posture/Palpation/Skin Start: 07/18/20 07:41 Freq: Status: Active Protocol: Document 07/18/20 14:30 AMB (Rec: 07/19/20 14:56 AMB [email or web address]) Posture Evaluation Comments Posture Comments Increased lumbar lordosis PT-OP-K Range of Motion Start: 07/18/20 07:41 Freq: Status: Active Protocol: Document 10/19/20 12:45 AMB (Rec: 10/19/20 15:29 AMB [email or web address]) Lumbar Spine Range of Motion Lumbar Spine Active Degrees Flexion 30 Hip Goniometric Range of Motion Hip ROM Limitations Comments SLR: 65 PT-OP-L Special Tests Start: 07/18/20 07:41 Freq: Status: Active Protocol: Document 07/18/20 14:30 AMB (Rec: 07/19/20 14:56 AMB [email or web address]) Special Tests Lumbar Spine Special Tests Straight Leg Raise Test Results + Slump Test Results + PT-OP-M Strength Start: 07/18/20 07:41 Freq: Status: Active Protocol: Document 07/18/20 14:30 AMB (Rec: 07/19/20 14:56 AMB [email or web address]) Hip Strength Hip Manual Muscle Testing Left Flexion (L2) 3 Fair Extension (S1) 4 Good Abduction 4 Good Adduction 4 Good Right Flexion (L2) 4+ Good+ Extension (S1) 5 Normal Abduction 5 Normal Adduction 5 Normal PT-OP-Q Treatments Start: 07/18/20 07:41 Freq: Status: Active Protocol: Document 10/26/20 12:52 AMB (Rec: 10/26/20 13:32 AMB [email or web address]) Therapeutic Exercises Supine Exercises 7 Supine Exercise Name supine bike Reps/Minutes 2x20 6 Supine Exercise Name hip flexor stretch Reps/Minutes 30x2 Comments standing and kneeling variations 2 Supine Exercise Name active hamstring stretch Reps/Minutes 2x10 1 Supine Exercise Name piriformis stretch Reps/Minutes 2x30 Prone Exercises 1 Prone Exercise Name full plank Comments 30x2 Sidelying Exercises 2 Sidelying Exercise Name clam Reps/Minutes #2 t band 1 Sidelying Exercise Name side plank modified with kneeling Reps/Minutes 30x2 Comments Added side tap to mat Manual Therapy Treatment Manual Traction Lumbar Details long axis traction Body Position Supine Comments L leg PT-OP-R Modalities Start: 07/18/20 07:41 Freq: Status: Active Protocol: Document 08/02/20 08:15 AMB (Rec: 08/02/20 09:00 AMB [id number]) Hot Pack/Cold Pack Treatment Hot Pack Location low back Patient Position Hooklying Treatment Duration (minutes) 10 PT-OP-T Assessment and Plan Start: 07/18/20 07:41 Freq: Status: Active Protocol: Document 11/25/20 16:06 AMB (Rec: 11/25/20 16:12 AMB [email or web address]) Physical Therapy Assessment Goals Two Impairment pain Short Term Goal (STG) Bryan will sit for 5 minutes without an increase in his pain. STG Duration MET [facility] Goal (LTG) Bryan will drive from his home to work without an increase in pain. LTG Duration MET One Impairment ROM Short Term Goal (STG) Bryan will improve his lumbar flexion AROM to 30 degrees without tingling down his leg. STG Duration [facility] Goal (LTG) Bryan will increase his straight leg raise AROM to 70 degrees without leg or back sx . PROGRESS MADE 60 degrees LTG Duration 8 weeks Assessment Summary Assessment Gurdeep has not been seen in a month and has canceled and no showed his last appointments. Overall he was improving, but had been put on steroids for another condition, and some of his improvement could have been from the steroids. Either way he does have a home exercise program, and if he does have another flare up would be welcome to return with another referral.
== END 2021-02-17 09:48 | disposition home or self-care (01) ==
LOC: PHYS 12:45
PROVIDERS: PCP Family Medicine; Referring Provider Nurse Practitioner; Visit Provider Nurse Practitioner
DX: M54.30 Sciatica, unspecified side (principal)
CPT/HCPCS: 97110; 97140; 97162; 97530

== ENCOUNTER → 2020-12-29 12:05 | Outpatient (CLI) | payer OTHER, SELFPAY ==
[2020-12-29 12:42] LABS: COVID19 -Nasal RAPID Negative (Negative)
== END ==
PROVIDERS: PCP Family Medicine; Visit Provider Physician Assistant
DX: R05 Cough (principal); R06.2 Wheezing; R53.83 Other fatigue; Z20.822 Contact with and (suspected) exposure to COVID-19
CPT/HCPCS: 87635

== ENCOUNTER → 2021-02-10 14:49 | Outpatient (CLI) | payer OTHER, SELFPAY ==
--- NOTE | 2021-02-10 14:51 | DI.RAD.S_ITS ---
PROCEDURE: XR CHEST 2V INDICATIONS: Right sided anterior chest wall pain TECHNIQUE: 2 views of the chest were acquired. COMPARISON: [facility], , XR CHEST 1V, 09/25/2018, 11:04. [facility], CR, CHEST 2 VIEW, 12/03/2017, 14:44. FINDINGS: Surgical changes and devices: None. Lungs and pleura: Lungs are clear. No pleural effusions or pneumothorax. Mediastinum: Mediastinal contours are normal. Heart size is normal. Bones and chest wall: No suspicious bony abnormalities. Soft tissues appear unremarkable. IMPRESSION: Normal for age, source of current right-sided chest pain symptoms is not seen. Dictated by: Shaq Ruiz M.D. on 02/10/2021 at 15:06 Approved by: Shaq Ruiz M.D. on 02/10/2021 at 15:07
== END ==
PROVIDERS: PCP Family Medicine; Referring Provider Student in an Organized Health Care Education/Training Program; Visit Provider Student in an Organized Health Care Education/Training Program
DX: R07.89 Other chest pain (principal)
CPT/HCPCS: 71046